=== PATIENT | female | born 1985 | race Caucasian/White ===

== ENCOUNTER → 2018-06-20 17:20 | Outpatient (CLI) | payer OTHER, SELFPAY ==
[2018-06-20 18:56] LABS: HCG Quantitative /Beta subunit 4234.3 mIU/mL
== END ==
PROVIDERS: Visit Provider Obstetrics & Gynecology
DX: O20.9 Hemorrhage in early pregnancy, unspecified (principal)
CPT/HCPCS: 36415; 84702

== ENCOUNTER → 2018-08-01 16:03 | Outpatient (CLI) | payer OTHER, SELFPAY ==
[2018-08-01 17:18] LABS: Add Manual Diff / Slide Review NO; Basophils Percent Auto 0.7 % (0-2); Hematocrit 36.1 % (36-46); Hemoglobin 12.4 g/dL (12.0-16.0); Lymphocytes Percent Auto 25.2 % (25-40); Mean Corpuscular HGB Conc 34.3 % (30-36); Mean Corpuscular Hemoglobin 28.2 PG (26-34); Mean Corpuscular Volume 82.4 fL (80-100); Monocytes Percent Auto 7.8 % (3-14); Neutrophils Absolute Auto 5500 /uL (3000-5900); Neutrophils Percent Auto 66.3 % (50-75); Platelet Count 209 X10^3/uL (150-400); Red Blood Cell Count 4.39 X10^6/uL (4.0-5.2); Red Cell Distribution Width 13.8 % (11.6-14.8); White Blood Cell Count 8.3 X10^3/uL (4.5-11.0)
[2018-08-01 17:42] LABS: Appearance Urine UA CLEAR; Bilirubin Urine UA NEGATIVE (NEGATIVE); Color Urine UA YELLOW; Glucose Urine UA NEGATIVE (Normal); Ketones Urine UA NEGATIVE (NEGATIVE); Leukocyte Esterase Urine UA NEGATIVE (NEGATIVE); Nitrite Urine UA Negative (Negative); Occult Blood Urine UA NEGATIVE (Negative); Protein Urine UA NEGATIVE (Negative); Specific Gravity Urine UA <=1.005 (1.000-1.035); Urobilinogen Urine UA 0.2 E.U./dL (0.2)
[2018-08-01 18:05] LABS: Free T4, Direct Thyroxine 0.61 ng/dL (0.78-2.19)
[2018-08-01 18:18] LABS: Thyroid Stimulating Hormone < 0.02 uIU/mL (0.47-4.68)
[2018-08-01 18:20] LABS: Hepatitis B Surface Antigen NEGATIVE s/c (NEGATIVE)
[2018-08-01 18:40] LABS: HIV 1 and 2 Antibody NEGATIVE (NEGATIVE); Hep C Virus Ab w/Reflex Quant NEGATIVE s/c (NEGATIVE)
[2018-08-03 15:46] LABS: HSV 2 IGG AB < 0.90 index (< 0.90); HSV1IGG < 0.90 index (< 0.90)
[2018-08-08 12:05] LABS: Rapid Plasma Reagin NON-REACTIVE
== END ==
PROVIDERS: PCP Naturopath; Visit Provider Obstetrics & Gynecology
DX: Z3A.01 Less than 8 weeks gestation of pregnancy (principal); Z34.01 Encounter for supervision of normal first pregnancy, first trimester; E06.3 Autoimmune thyroiditis
CPT/HCPCS: 36415; 80055; 81003; 84439; 84443; 86695; 86696; 86703; 86787; 86803; 86850; 86900; 86901; 87086

== ENCOUNTER 2021-03-09 16:49 | Emergency (ER) | payer OTHER, SELFPAY ==
[2021-03-09 17:01] VITALS: BP 142/70; PULSE 112; RESP 14; TEMP 37.9; O2SAT 99
--- NOTE | 2021-03-09 17:08 | DI.RAD.S_ITS ---
PROCEDURE: XR CHEST 2V INDICATIONS: pneumonia not respondint to abx. TECHNIQUE: 2 views of the chest were acquired. COMPARISON: None. FINDINGS: Surgical changes and devices: None. Lungs and pleura: Lungs are abnormal, with dense pneumonia at each lung base, slightly more prominent on the left than the right.. No pleural effusions or pneumothorax. Mediastinum: Mediastinal contours are normal. Heart size is normal. Bones and chest wall: No suspicious bony abnormalities. Soft tissues appear unremarkable. IMPRESSION: Bilateral lower lung pneumonia posteriorly, without definite pleural effusion. The extent of disease is greater on the left than the right. Depending on the clinical status follow-up by contrast-enhanced CT scanning may become necessary. Dictated by: Milton Aden M.D. on 03/09/2021 at 17:36 Approved by: Milton Aden M.D. on 03/09/2021 at 17:37
[2021-03-09 17:54] LABS: COVID19 -Nasal RAPID Negative (Negative)
[2021-03-09 18:29] LABS: Add Manual Diff / Slide Review NO; Basophils Absolute Auto 100 /uL (0-100); Eosinophils Absolute Auto 0 /uL (0-450); Eosinophils Percent Auto 0.1 % (2-4); Hematocrit 34.3 % (36-46); Hemoglobin 11.3 g/dL (12.0-16.0); Lymphocytes Absolute Auto 2700 /uL (1100-4500); Lymphocytes Percent Auto 20.1 % (25-40); Mean Corpuscular HGB Conc 32.8 % (30-36); Mean Corpuscular Hemoglobin 25.7 PG (26-34); Mean Corpuscular Volume 78.4 fL (80-100); Monocytes Absolute Auto 1200 /uL (0-900); Monocytes Percent Auto 9.2 % (3-14); Neutrophils Absolute Auto 9400 /uL (1500-7000); Neutrophils Percent Auto 69.6 % (50-75); Platelet Count 449 X10^3/uL (150-400); Red Blood Cell Count 4.38 X10^6/uL (4.0-5.2); Red Cell Distribution Width 14.2 % (11.6-14.8); White Blood Cell Count 13.5 X10^3/uL (4.5-11.0)
[2021-03-09 18:40] LABS: Alanine Aminotransferase 20 IU/L (<35); Albumin Globulin Ratio 1.1 (1.0-2.8); Alkaline Phosphatase 99 U/L (38-126); Aspartate Aminotransferase 20 IU/L (14-36); BUN Creatinine Ratio 15.9 (6-22); Bilirubin Total 0.2 mg/dL (0.2-1.3); Blood Urea Nitrogen 10 mg/dL (7-17); Calcium 9.8 mg/dL (8.4-10.2); Carbon Dioxide 24 mmol/L (22-32); Chloride 103 mmol/L (98-107); Creatine Kinase 25 U/L (30-135); Estimated Glomerular Filt Rate > 60.0 mL/min (>60); Globulin 3.6 g/dL (1.7-4.1); Glucose 97 mg/dL (70-100); HEMOLYSIS 16 (0-50); Lipase 65 U/L (23-300); Potassium 3.8 mmol/L (3.4-5.1); Sodium 139 mmol/L (137-145); Total Protein 7.6 g/dL (6.3-8.2)
[2021-03-09 18:41] LABS: Lactate (Lactic Acid) 0.9 mmol/L (0.7-2.1)
[2021-03-09] MEDS: SODIUM CHLORIDE 0.9% 2,177.25 ML 725.75 ML IV (18:41)
[2021-03-09 18:43] VITALS: PULSE 109; RESP 28; O2SAT 99
[2021-03-09 18:52] LABS: NT-proBNP (BNP-Adult 18+) 60 pg/mL (<125); Troponin I < 0.012 ng/mL (0.01-0.034)
--- NOTE | 2021-03-09 18:53 | DI.CT.S_ITS ---
PROCEDURE: CT ANGIO CHEST PE PROTOCOL INDICATIONS: SOB, tachycardia, failed pneumonia outpt treatment TECHNIQUE: After the administration of intravenous contrast, 2 mm thick sections acquired from the pulmonary apices to the posterior costophrenic angles. 3-dimensional maximum intensity projection (MIP) coronal and sagittal reformats were then acquired through the thorax. For radiation dose reduction, the following was used: automated exposure control, adjustment of mA and/or kV according to patient size. COMPARISON: None. FINDINGS: Image quality: Excellent. Pulmonary arteries: Pulmonary arteries are normal in size, and demonstrate no intraluminal filling defects to suggest central pulmonary embolism. Lungs and pleura: Dense consolidations are seen in the lower lobes bilaterally as well as the posterior portion of the lingula, most likely representing pneumonia. No pleural effusion or pneumothorax. Mediastinum: Heart size is normal, without pericardial effusion. A few mildly prominent mediastinal lymph nodes are seen that are most likely reactive. No significantly enlarged lymph node is seen by CT size criteria. Thoracic aorta is normal in caliber and enhancement. Esophagus is normal in caliber, without hiatal hernia. Bones and chest wall: No suspicious bony lesions. Ribs and thoracic spine appear intact throughout. Thyroid gland appears normal. No axillary or supraclavicular adenopathy. Abdomen: Visualized upper abdominal solid organs appear normal in the early arterial phase of enhancement. IMPRESSION: 1. No acute pulmonary embolus. 2. Bilateral dense pulmonary consolidations are suspicious for pneumonia. Dictated by: Vipul Machado M.D. on 03/09/2021 at 19:37 Approved by: Vipul Machado M.D. on 03/09/2021 at 19:40
[2021-03-09 18:57] LABS: Procalcitonin 0.05 ng/mL (<0.5)
[2021-03-09 19:00] VITALS: BP 106/64; PULSE 106; RESP 25; O2SAT 99
--- NOTE | 2021-03-09 19:25 | ED.SOB ---
HPI - SOB/Dyspnea <HENOK Vale - Last Filed: 03/09/21 20:32> General Chief Complaint: Fever Stated Complaint: SOB fever,tachycardia, GI Time Seen by Provider: 03/09/21 17:10 Source: patient Mode of arrival: Ambulatory Limitations: no limitations History of Present Illness HPI Narrative: This is a 36-year-old female, nonsmoker, has past medical history with hypothyroidism, Jackie's, autoimmune diseases presents to ED with family with chief complain of short of breath, low-grade of fever, chills and night sweats despite taken 2 types of antibiotic medications for pneumonia. Patient is not on steroids or and a suppressant medications at this time. Patient reports initial symptoms started over a month ago as chest congestion and like bad allergy which continue with coughing. Patient has history of several bronchitis in the past. Patient was evaluated at walk-in clinic primary care and ancillary service in [place] for this ongoing symptoms and was prescribed with Augmentin for 10 day course which she is continuing and albuterol inhaler. Patient felt much improvements and was re-evaluated at the same walk-in clinic and as prescribed Z-Phillip in addition which she completed. Last a few days, and developed night sweats and waking up with soak wet and difficulty sleeping from this and chills. Patient had occasional chest pain 2 weeks ago which she no longer has at this time. Patient feels rattling in left-sided chest. Patient denies known exposure to TB, for COVID illness. Patient had some nausea today diarrhea after she started antibiotic medications but denies abdominal pain. Patient has been socially distancing due to autoimmune disease. Patient was seen today again at walk-in clinic and had lab tests with COVID and flu swabs done and was recommended they evaluation in emergency room at [facility]. O2 saturation was in 95% walk-in clinic. She decided to come to [facility] Emergency room after she waited while at [facility] since she is familiar with [facility]. Patient denies since hospitalization, surgery, leg pain/swelling, history of blood clots. Related Data Home Medications Medication Instructions Recorded Confirmed acetylcysteine 500 mg capsule mg PO cap 08/01/18 08/01/18 cholecalciferol (vitamin D3) 50 2,000 unit PO DAILY 08/01/18 08/01/18 mcg (2,000 unit) capsule liothyronine 25 mcg tablet 25 mcg PO DAILY 08/01/18 08/01/18 liver extract cap PO cap 08/01/18 08/01/18 omega-3 fatty acids 1,000 mg 1,000 mg PO DAILY 08/01/18 08/01/18 capsule prenat.vits,xavier,ahu-ixov-ohtnb 1 tab PO DAILY 08/01/18 08/01/18 thyroid (pork) 90 mg tablet 90 mg PO DAILY 08/01/18 08/01/18 Previous Rx's Medication Instructions Recorded progesterone micronized 200 mg 200 mg PO DAILY #30 cap 07/13/18 capsule levofloxacin 750 mg PO DAILY 10 Days tab 03/10/21 Allergies Allergy/AdvReac Type Severity Reaction Status Date / Time oxycodone AdvReac Vis/Auditory Verified 03/09/21 17:07 Hallucinations Review of Systems <HENOK Vale - Last Filed: 03/09/21 20:32> Review of Systems Narrative: General: See HPI HEENT: Denies sinus pain, ear pain, sore throat, difficulty swallowing, dizziness. Respiratory: See HPI Cardiovascular: See HPI Gastrointestinal: See HPI : Denies dysuria, frequency, incontinence, hematuria, urinary retention. Musculoskeletal: Denies weakness, joint pain or bony pain. Skin: Denies rash, skin lesions, or other. Neurologic: Denies weakness, headache, numbness, change in speech, confusion, seizures, incoordination. Psychiatric: No concerning psychosocial issues. 12-point review of systems is negative except for those stated above. 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 Head: Normal cephalic, atraumatic. No scalp or temporal tenderness, palpable mass or rash. EYES: Pupils are equal, round, and reactive to light and accommodation. Extraocular muscles are intact bilaterally. There is no subconjunctival hemorrhage, exudate and sclera non-icteric. ENT: Hearing grossly intact. Nose without bleeding, purulent discharge or deviation. Facial sinuses nontender to palpate. Mucous membrane moist, no mucosal lesion. Throat without erythema, tonsillar hypertrophy or exudate. Uvula in midline, airway patent. Neck: Trachea in midline. No JVD, non-tender without lymphadenopathy. No masses or thyroid megaly. Supple, non-tender and no meningeal signs. CARDIAC: Normal regular tachy rate and rhythm without murmurs, gallops, or rubs. No chest wall tenderness. No peripheral edema, cyanosis or pallor. Capillary refill is less than 2 seconds. RESPIRATORY: Lungs crackles in mid to upper left lobe. No cough, wheezes or stridor. Tachypnea and difficulty completing a full long sentences. O2 sat from 92-96% in room air. ABD: Abdomen soft, nontender and non-distended. No guarding or rebound tenderness to palpate. Bowel sounds are normal in all 4 quadrants. There is no palpable masses or organomegaly. EXT: Full painless ROM of all extremities with no loss of sensation, strength, effusion or edema. SKIN: Warm, dry, normal color for patient. No erythema, lesions or rash over visible areas. BACK: Nontender without deformity or crepitance. No flank tenderness. NEUROLOGICAL: Alert and oriented to place, time and person. Sensation and motor function intact bilaterally. No facial droops, dysphasia. PSYCHIATRIC: Good judgement and reason, without hallucinations, abnormal affect or abnormal behaviors during the examination. Patient is not suicidal. Initial Vital Signs Initial Vital Signs: Vital Signs Temperature 100.2 F H 03/09/21 17:01 Pulse Rate 112 H 03/09/21 17:01 Respiratory Rate 14 03/09/21 17:01 Blood Pressure 142/70 H 03/09/21 17:01 Pulse Oximetry 99 03/09/21 17:01 <Winnie Bass DO - Last Filed: 03/10/21 04:20> Initial Vital Signs Initial Vital Signs: Vital Signs Temperature 100.2 F H 03/09/21 17:01 Pulse Rate 112 H 03/09/21 17:01 Respiratory Rate 14 03/09/21 17:01 Blood Pressure 142/70 H 03/09/21 17:01 Pulse Oximetry 99 03/09/21 17:01 Scores <HENOK Vale - Last Filed: 03/09/21 20:32> GCS [place] coma scale eye opening: Spontaneous [place] coma scale verbal response: Orientated Rito coma scale motor response: Obey commands [place] coma scale total score: 15 HEART Score Heart Score history: Slightly Suspicious Heart Score EKG: Normal Heart Score Age: < 45 years old Heart Score risk factors: No known risk factors Heart Score troponin: < or = to normal limit Heart Score Total: 0 PERC Score Age greater than or equal to 50 years: No Heart rate greater than or equal to 100 bpm: Yes Room Air O2 Sat less than 95%: Yes Unilateral leg swelling: No Recent trauma or surgery: No Hemoptysis: No Prior PE or DVT: No Hormone Use: No Total PERC Score: 2 qSOFA Altered Mental Status (GCS <15): No Respiratory rate greater than/equal to 22: Yes Systolic blood pressure less than or equal to 100: No qSOFA Total: 1 0-1 Not High Risk 1-3 High risk Wells' Criteria for PE Clinical signs and symptoms of DVT: No PE is #1 Dx or equally likely: Yes Heart rate > 100: Yes Immobilization at least 3 days or surg in previous 4 weeks: No History of PE or DVT: No Hemoptysis: No Malignancy w/Treatment within 6 months or palliative: No Wells' PE Score total: 4.5 Course <HENOK Vale - Last Filed: 03/09/21 20:32> Orders Ordered: ED Orders 03/09/21 19:28 Urinalysis and Microscopic Stat Discontinued Medications Albuterol/Ipratropium (Albuterol/Ipratropium 3 Ml Ampul) 3 ml INH NOW ONE Stop: 03/09/21 19:57 Last Admin: 03/09/21 20:05 Dose: 3 ml Documented by: [email or web address] Dexamethasone (Dexamethasone 10 Mg/Ml Vial) 10 mg IV NOW ONE Stop: 03/09/21 20:29 Last Admin: 03/09/21 20:36 Dose: 10 mg Documented by: AUSTIN Sodium Chloride (Normal Saline 0.9%) 1,000 mls @ 200 mls/hr IV CONT JESUS Last Admin: 03/09/21 18:43 Dose: Not Given Documented by: KESHA Sodium Chloride (Normal Saline 0.9%) 2,177.25 mls @ 725.75 mls/hr 30 ml/kg infuse over 3 hr (2177.25 ml) IV NOW ONE Stop: 03/09/21 20:45 Last Infusion: 03/09/21 21:01 Dose: 0 mls/hr Documented by: Infusion: 03/09/21 18:41 Dose: 999 mls/hr Documented by: Admin: 03/09/21 18:41 Dose: 725.75 mls/hr Documented by: KESHA Levofloxacin (Levaquin) 750 mg in 150 mls @ 100 mls/hr IV NOW ONE Stop: 03/09/21 21:33 Last Infusion: 03/09/21 21:32 Dose: 0 mls/hr Documented by: Admin: 03/09/21 20:16 Dose: 100 mls/hr Documented by: AUSTIN Vancomycin HCl/Dextrose (Vancomycin) 2,000 mg in 400 mls @ 200 mls/hr IV NOW ONE Stop: 03/09/21 22:04 Last Infusion: 03/10/21 00:35 Dose: 0 mls/hr Documented by: Infusion: 03/10/21 00:20 Dose: 150 mls/hr Documented by: Infusion: 03/09/21 22:25 Dose: 100 mls/hr Documented by: Admin: 03/09/21 21:33 Dose: 200 mls/hr Documented by: AUSTIN Reevaluation(s) Reevaluation #1: HR in 110-120's after the 1 Liter NS infusion. O2 sat 99% in RA with tachypnea at 24 and SOB. Normal tensive. Discussed findings of negative PE and bilateral dense pneumonia per CT test and labs reflecting this with elevated WBC with negative lactate and procalcitonin. Negative troponin. Patient would like to go home after receiving IV antibiotic medications with strict precautions. Patient's case just with Dr. Bass who will be following up on the patient's care. No beds are available house, nearby hospitals in [facility]. Time: 20:18 Vital Signs Vital signs: Vital Signs - 8 hr 03/09/21 20:42 03/10/21 00:49 03/10/21 00:57 Temperature 98.2 F Pulse Rate 103 H Respiratory Rate 16 18 Blood Pressure 107/60 Pulse Oximetry 97 98 03/10/21 01:12 Temperature 97.6 F Pulse Rate 68 Respiratory Rate 20 Blood Pressure 107/66 Pulse Oximetry 96 <Winnie Bass DO - Last Filed: 03/10/21 04:20> Orders Ordered: ED Orders 03/09/21 19:28 Urinalysis and Microscopic Stat Discontinued Medications Albuterol/Ipratropium (Albuterol/Ipratropium 3 Ml Ampul) 3 ml INH NOW ONE Stop: 03/09/21 19:57 Last Admin: 03/09/21 20:05 Dose: 3 ml Documented by: ABEAMA Dexamethasone (Dexamethasone 10 Mg/Ml Vial) 10 mg IV NOW ONE Stop: 03/09/21 20:29 Last Admin: 03/09/21 20:36 Dose: 10 mg Documented by: ABEAMA Sodium Chloride (Normal Saline 0.9%) 1,000 mls @ 200 mls/hr IV CONT JESUS Last Admin: 03/09/21 18:43 Dose: Not Given Documented by: KESHA Sodium Chloride (Normal Saline 0.9%) 2,177.25 mls @ 725.75 mls/hr 30 ml/kg infuse over 3 hr (2177.25 ml) IV NOW ONE Stop: 03/09/21 20:45 Last Infusion: 03/09/21 21:01 Dose: 0 mls/hr Documented by: Infusion: 03/09/21 18:41 Dose: 999 mls/hr Documented by: Admin: 03/09/21 18:41 Dose: 725.75 mls/hr Documented by: KESHA Levofloxacin (Levaquin) 750 mg in 150 mls @ 100 mls/hr IV NOW ONE Stop: 03/09/21 21:33 Last Infusion: 03/09/21 21:32 Dose: 0 mls/hr Documented by: [email or web address] Admin: 03/09/21 20:16 Dose: 100 mls/hr Documented by: [email or web address] Vancomycin HCl/Dextrose (Vancomycin) 2,000 mg in 400 mls @ 200 mls/hr IV NOW ONE Stop: 03/09/21 22:04 Last Infusion: 03/10/21 00:35 Dose: 0 mls/hr Documented by: [email or web address] Infusion: 03/10/21 00:20 Dose: 150 mls/hr Documented by: CTR.[email or web address] Infusion: 03/09/21 22:25 Dose: 100 mls/hr Documented by: CTR.[email or web address] Admin: 03/09/21 21:33 Dose: 200 mls/hr Documented by: [email or web address] Reevaluation(s) Reevaluation #1: Patient is feeling much better and evaluated by myself in the room. She has been ambulating back and forth to the bathroom without issue . She does not wish to be admitted. We discussed we are changing her antibiotics but this is her 3rd round of antibiotics (initial were augmentin and azithromycin) which patient states she completed and if it is ineffective she does likely need hospitalization or further evaluation. She has also been using albuterol without a spacer so was provided one here in the department with teaching. She does not live locally but is staying with family currently so she has courage to return if any worsening and we also discussed getting a pulse oximeter to monitor herself at home. Time: 01:00 Vital Signs Vital signs: Vital Signs - 8 hr 03/09/21 20:42 03/10/21 00:49 03/10/21 00:57 Temperature 98.2 F Pulse Rate 103 H Respiratory Rate 16 18 Blood Pressure 107/60 Pulse Oximetry 97 98 03/10/21 01:12 Temperature 97.6 F Pulse Rate 68 Respiratory Rate 20 Blood Pressure 107/66 Pulse Oximetry 96 MDM - SOB/Dyspnea <Butch HENOK Rachel - Last Filed: 03/09/21 20:32> Differential Diagnosis Differential diagnosis: Likely community acquired pneumonia, pulmonary embolism and other (sepsis, pleural effusion, ACS) Medical Records Attestation: I reviewed the patient's medical records. Lab Data Attestation: I reviewed the patient's lab results. Result diagrams: 03/09/21 18:06 03/09/21 18:06 Labs: Lab Results 03/09/21 03/09/21 03/09/21 Range/Units 16:00 17:10 18:06 WBC 13.5 H (4.5-11.0) X10^3/uL RBC 4.38 (4.0-5.2) X10^6/uL Hgb 11.3 L (12.0-16.0) g/dL Hct 34.3 L (36-46) % MCV 78.4 L (80-100) fL MCH 25.7 L (26-34) PG MCHC 32.8 (30-36) % RDW 14.2 (11.6-14.8) % Plt Count 449 H (150-400) X10^3/uL Neut % (Auto) 69.6 (50-75) % Lymph % (Auto) 20.1 L (25-40) % [place] % (Auto) 9.2 (3-14) % Eos % (Auto) 0.1 L (2-4) % Baso % (Auto) 1.0 (0-2) % Neut # (Auto) 9400 H (4575-7139) /uL Lymph # (Auto) 2700 (2843-3670) /uL [place] # (Auto) 1200 H (0-900) /uL Eos # (Auto) 0 (0-450) /uL Baso # (Auto) 100 (0-100) /uL Sodium (137-145) mmol/L Potassium (3.4-5.1) mmol/L Chloride (98-107) mmol/L Carbon Dioxide (22-32) mmol/L BUN (7-17) mg/dL Creatinine (0.52-1.04) mg/dL Estimated GFR (>60) mL/min BUN/Creatinine Ratio (6-22) Glucose (70-100) mg/dL Lactate (0.7-2.1) mmol/L Calcium (8.4-10.2) mg/dL Total Bilirubin (0.2-1.3) mg/dL AST (14-36) IU/L ALT (<35) IU/L Alkaline Phosphatase (38-126) U/L Total Creatine Kinase (30-135) U/L CK-MB (CK-2) CK-MB (CK-2) Rel Index Troponin I (0.01-0.034) ng/mL NT-Pro-B Natriuret Pep (<125) pg/mL Total Protein (6.3-8.2) g/dL Albumin (3.5-5.0) g/dL Globulin (1.7-4.1) g/dL Albumin/Globulin Ratio (1.0-2.8) Lipase (23-300) U/L Procalcitonin (<0.5) ng/mL TSH < 0.015 L (0.47-4.68) uIU/mL Free T4 0.90 (0.78-2.19) ng/dL Free T3 4.55 (2.77-5.27) pg/mL SARS-CoV-2 (PCR) Negative (Negative) 03/09/21 03/09/21 Range/Units 18:06 18:06 WBC (4.5-11.0) X10^3/uL RBC (4.0-5.2) X10^6/uL Hgb (12.0-16.0) g/dL Hct (36-46) % MCV (80-100) fL MCH (26-34) PG MCHC (30-36) % RDW (11.6-14.8) % Plt Count (150-400) X10^3/uL Neut % (Auto) (50-75) % Lymph % (Auto) (25-40) % [place] % (Auto) (3-14) % Eos % (Auto) (2-4) % Baso % (Auto) (0-2) % Neut # (Auto) (9287-7417) /uL Lymph # (Auto) (1722-5263) /uL [place] # (Auto) (0-900) /uL Eos # (Auto) (0-450) /uL Baso # (Auto) (0-100) /uL Sodium 139 (137-145) mmol/L Potassium 3.8 (3.4-5.1) mmol/L Chloride 103 (98-107) mmol/L Carbon Dioxide 24 (22-32) mmol/L BUN 10 (7-17) mg/dL Creatinine 0.63 (0.52-1.04) mg/dL Estimated GFR > 60.0 (>60) mL/min BUN/Creatinine Ratio 15.9 (6-22) Glucose 97 (70-100) mg/dL Lactate 0.9 (0.7-2.1) mmol/L Calcium 9.8 (8.4-10.2) mg/dL Total Bilirubin 0.2 (0.2-1.3) mg/dL AST 20 (14-36) IU/L ALT 20 (<35) IU/L Alkaline Phosphatase 99 (38-126) U/L Total Creatine Kinase 25 L (30-135) U/L CK-MB (CK-2) TNP CK-MB (CK-2) Rel Index TNP Troponin I < 0.012 (0.01-0.034) ng/mL NT-Pro-B Natriuret Pep 60 (<125) pg/mL Total Protein 7.6 (6.3-8.2) g/dL Albumin 4.0 (3.5-5.0) g/dL Globulin 3.6 (1.7-4.1) g/dL Albumin/Globulin Ratio 1.1 (1.0-2.8) Lipase 65 (23-300) U/L Procalcitonin 0.05 (<0.5) ng/mL TSH (0.47-4.68) uIU/mL Free T4 (0.78-2.19) ng/dL Free T3 (2.77-5.27) pg/mL SARS-CoV-2 (PCR) (Negative) Point of Care Testing Test Results Negative Urine Dip Bedside Urine Glucose Negative Bedside Urine Bilirubin - Negative Bedside Urine Ketone - Negative Urine Specific Lynn 1.010 Bedside Urine Occult Blood +/- Bedside Urine Protein - Negative Bedside Urine Urobilinogen - Negative Bedside Urine Nitrite - Negative Bedside Urine Leukocytes - Negative Esterase Imaging Data Chest x-ray: Radiologist's Impression: [address] [id number] ReportSigned Patient: Monalisa Blanco#: [id number]: 1985Acct:[id number]/Sex: 36 / FDate of Service: 03/09/21Loc: EDAccession Number: [id number] Procedure: XR chest 2V Ordering Provider: Frederick Morrow D.O. PROCEDURE: XR CHEST 2V INDICATIONS: pneumonia not respondint to abx. TECHNIQUE: 2 views of the chest were acquired. COMPARISON: None. FINDINGS: Surgical changes and devices: None. Lungs and pleura: Lungs are abnormal, with dense pneumonia at each lung base, slightly more prominent on the left than the right.. No pleural effusions or pneumothorax. Mediastinum: Mediastinal contours are normal. Heart size is normal. Bones and chest wall: No suspicious bony abnormalities. Soft tissues appear unremarkable. IMPRESSION: Bilateral lower lung pneumonia posteriorly, without definite pleural effusion. The extent of disease is greater on the left than the right. Depending on the clinical status follow-up by contrast-enhanced CT scanning may become necessary. Dictated by: Milton Aden M.D. on 03/09/2021 at 17:36 Approved by: Milton Aden M.D. on 03/09/2021 at 17:37 CT scan - chest: Radiologist's Impression: [address] [id number] Scan ReportSigned Patient: Monalisa Blanco#: [id number]: 1985Acct:[id number]/Sex: 36 / FDate of Service: 03/09/21Loc: EDAccession Number: [id number] Procedure: CT angio chest PE protocol Ordering Provider: Butch Rachel PROCEDURE: CT ANGIO CHEST PE PROTOCOL INDICATIONS: SOB, tachycardia, failed pneumonia outpt treatment TECHNIQUE: After the administration of intravenous contrast, 2 mm thick sections acquired from the pulmonary apices to the posterior costophrenic angles. 3-dimensional maximum intensity projection (MIP) coronal and sagittal reformats were then acquired through the thorax. For radiation dose reduction, the following was used: automated exposure control, adjustment of mA and/or kV according to patient size. COMPARISON: None. FINDINGS: Image quality: Excellent. Pulmonary arteries: Pulmonary arteries are normal in size, and demonstrate no intraluminal filling defects to suggest central pulmonary embolism. Lungs and pleura: Dense consolidations are seen in the lower lobes bilaterally as well as the posterior portion of the lingula, most likely representing pneumonia. No pleural effusion or pneumothorax. Mediastinum: Heart size is normal, without pericardial effusion. A few mildly prominent mediastinal lymph nodes are seen that are most likely reactive. No significantly enlarged lymph node is seen by CT size criteria. Thoracic aorta is normal in caliber and enhancement. Esophagus is normal in caliber, without hiatal hernia. Bones and chest wall: No suspicious bony lesions. Ribs and thoracic spine appear intact throughout. Thyroid gland appears normal. No axillary or supraclavicular adenopathy. Abdomen: Visualized upper abdominal solid organs appear normal in the early arterial phase of enhancement. IMPRESSION: 1. No acute pulmonary embolus. 2. Bilateral dense pulmonary consolidations are suspicious for pneumonia. Dictated by: Vipul Machado M.D. on 03/09/2021 at 19:37 Approved by: Vipul Machado M.D. on 03/09/2021 at 19:40 ECG Data Attestation: I personally reviewed and interpreted this ECG as follows: Prior ECG tracings: not available for review Interpretation: Sinus tachycardia rate at 1:16 a.m.. Normal axis. FL interval 162, QRS duration 72, QT/QTC 322/447. No ST elevations or depressions MDM Narrative Medical decision making narrative: This is a 36-year-old female presents to ED after she was evaluated in walk-in clinic at [place] several times with ongoing breath, productive cough, mild grade of fever, and short of breath. Patient completed Z-Phillip and she is on 10 day course of Augmentin without improving symptoms. Last few days patient developed night sweats and chills at night. Patient's room air O2 said on arrival range from 92-96% with tachypnea of 26 per minutes with heart rate in 110s to 120s with normotensive. Patient appears to be short of breath and difficulty completing a long sentences. Lung sounds some crackles in mid to upper left lobes. Patient is nontoxic appearing. Concerned for sepsis from pneumonia, PE, and large pleural effusion, chest CT ordered with septic workup. Count elevated to 13.5 with elevated neutrophil count of 9400 with normal lactate and procalcitonin. Mildly decreased H&H of 11.3/34.3 with slightly decreased MCV, MCH. Platelets slightly elevated to 449. Chemistry test was unremarkable. Cardiac enzymes were negative along proBNP. EKG sinus tachycardia rate at 1:16 a.m.. COVID test was negative. Given patient has long history of hypothyroidism, Jackie's, add a TSH and free T3 and T4. Patient reports she runs chronically low in TSH. Urine test was negative for infection and urine test was negative. Chest x-ray with bilateral lower lung pneumonia posteriorly without definite pleural effusion. Chest CT shows lateral dense pulmonary consolidations suspicious for pneumonia without pulmonary embolism. It is usual for patient's age who failed two antibiotic medication treatments for pneumonia who is not on immunosuppressant medications. We discussed for possible transfer to other hospitals if beds are available (as of early today, no beds are available near [facility] or in [facility]) and patient would like to be discharged to home as much as possible. Findings discussed with Dr. Bass and IV antibiotic medication Vanco and Levaquin added. Will do trial one dose of dexamethasone 10 mg if this is immune component. Patient is signed out to Dr. Bass. <Winnie Bass, DO - Last Filed: 03/10/21 04:20> Lab Data Labs: Lab Results 03/09/21 03/09/21 03/09/21 Range/Units 16:00 17:10 18:06 WBC 13.5 H (4.5-11.0) X10^3/uL RBC 4.38 (4.0-5.2) X10^6/uL Hgb 11.3 L (12.0-16.0) g/dL Hct 34.3 L (36-46) % MCV 78.4 L (80-100) fL MCH 25.7 L (26-34) PG MCHC 32.8 (30-36) % RDW 14.2 (11.6-14.8) % Plt Count 449 H (150-400) X10^3/uL Neut % (Auto) 69.6 (50-75) % Lymph % (Auto) 20.1 L (25-40) % [place] % (Auto) 9.2 (3-14) % Eos % (Auto) 0.1 L (2-4) % Baso % (Auto) 1.0 (0-2) % Neut # (Auto) 9400 H (5502-7727) /uL Lymph # (Auto) 2700 (6634-8765) /uL [place] # (Auto) 1200 H (0-900) /uL Eos # (Auto) 0 (0-450) /uL Baso # (Auto) 100 (0-100) /uL Sodium (137-145) mmol/L Potassium (3.4-5.1) mmol/L Chloride (98-107) mmol/L Carbon Dioxide (22-32) mmol/L BUN (7-17) mg/dL Creatinine (0.52-1.04) mg/dL Estimated GFR (>60) mL/min BUN/Creatinine Ratio (6-22) Glucose (70-100) mg/dL Lactate (0.7-2.1) mmol/L Calcium (8.4-10.2) mg/dL Total Bilirubin (0.2-1.3) mg/dL AST (14-36) IU/L ALT (<35) IU/L Alkaline Phosphatase (38-126) U/L Total Creatine Kinase (30-135) U/L CK-MB (CK-2) CK-MB (CK-2) Rel Index Troponin I (0.01-0.034) ng/mL NT-Pro-B Natriuret Pep (<125) pg/mL Total Protein (6.3-8.2) g/dL Albumin (3.5-5.0) g/dL Globulin (1.7-4.1) g/dL Albumin/Globulin Ratio (1.0-2.8) Lipase (23-300) U/L Procalcitonin (<0.5) ng/mL TSH < 0.015 L (0.47-4.68) uIU/mL Free T4 0.90 (0.78-2.19) ng/dL Free T3 4.55 (2.77-5.27) pg/mL SARS-CoV-2 (PCR) Negative (Negative) 03/09/21 03/09/21 Range/Units 18:06 18:06 WBC (4.5-11.0) X10^3/uL RBC (4.0-5.2) X10^6/uL Hgb (12.0-16.0) g/dL Hct (36-46) % MCV (80-100) fL MCH (26-34) PG MCHC (30-36) % RDW (11.6-14.8) % Plt Count (150-400) X10^3/uL Neut % (Auto) (50-75) % Lymph % (Auto) (25-40) % [place] % (Auto) (3-14) % Eos % (Auto) (2-4) % Baso % (Auto) (0-2) % Neut # (Auto) (3343-0188) /uL Lymph # (Auto) (0976-8991) /uL [place] # (Auto) (0-900) /uL Eos # (Auto) (0-450) /uL Baso # (Auto) (0-100) /uL Sodium 139 (137-145) mmol/L Potassium 3.8 (3.4-5.1) mmol/L Chloride 103 (98-107) mmol/L Carbon Dioxide 24 (22-32) mmol/L BUN 10 (7-17) mg/dL Creatinine 0.63 (0.52-1.04) mg/dL Estimated GFR > 60.0 (>60) mL/min BUN/Creatinine Ratio 15.9 (6-22) Glucose 97 (70-100) mg/dL Lactate 0.9 (0.7-2.1) mmol/L Calcium 9.8 (8.4-10.2) mg/dL Total Bilirubin 0.2 (0.2-1.3) mg/dL AST 20 (14-36) IU/L ALT 20 (<35) IU/L Alkaline Phosphatase 99 (38-126) U/L Total Creatine Kinase 25 L (30-135) U/L CK-MB (CK-2) TNP CK-MB (CK-2) Rel Index TNP Troponin I < 0.012 (0.01-0.034) ng/mL NT-Pro-B Natriuret Pep 60 (<125) pg/mL Total Protein 7.6 (6.3-8.2) g/dL Albumin 4.0 (3.5-5.0) g/dL Globulin 3.6 (1.7-4.1) g/dL Albumin/Globulin Ratio 1.1 (1.0-2.8) Lipase 65 (23-300) U/L Procalcitonin 0.05 (<0.5) ng/mL TSH (0.47-4.68) uIU/mL Free T4 (0.78-2.19) ng/dL Free T3 (2.77-5.27) pg/mL SARS-CoV-2 (PCR) (Negative) Point of Care Testing Test Results Negative Urine Dip Bedside Urine Glucose Negative Bedside Urine Bilirubin - Negative Bedside Urine Ketone - Negative Urine Specific Lynn 1.010 Bedside Urine Occult Blood +/- Bedside Urine Protein - Negative Bedside Urine Urobilinogen - Negative Bedside Urine Nitrite - Negative Bedside Urine Leukocytes - Negative Esterase Discharge Plan Departure Patient Disposition: Home Clinical Impression: Pneumonia Qualifiers: Pneumonia type: due to unspecified organism Laterality: bilateral Lung location: lower lobe of lung Qualified Code(s): J18.9 - Pneumonia, unspecified organism Instructions: DI for Pneumonia -- Adult Activity Restrictions/Additional Instructions: Your CT and labs support pneumonia but you should have close follow up as you have failed treatment with two oral antibiotics. I would recommend observation in the hospital for IV antibiotics and if you do not improve with the third antibiotic you do not need further workup and evaluation. You are welcome to return at any time for repeat evaluation. It may be beneficial to use a pulse oximeter at home. Normal oxygen levels are above 94%. Take oral antibiotic until gone. Start the oral antibiotic tomorrow. You may take Tylenol and/or ibuprofen for any fevers greater 100.4 F Please return for persistent fevers, new or worsening shortness of breath, lightheadedness or passing out, chest pain or pressure, persistent vomiting, new swelling in her extremities or other new or concerning symptoms. Prescriptions: New levofloxacin 750 mg tablet 750 mg PO DAILY 10 Days RF: 0 No Action progesterone micronized 200 mg capsule 200 mg PO DAILY Qty: 30 RF: 3 omega-3 fatty acids [Fish Oil Concentrate] 1,000 mg capsule 1,000 mg PO DAILY RF: 0 liothyronine 25 mcg tablet 25 mcg PO DAILY RF: 0 liver extract capsule PO RF: 0 prenat.vits,xavier,kbz-omnb-ravup [ Vitamin] tablet 1 tab PO DAILY RF: 0 cholecalciferol (vitamin D3) 2,000 unit capsule 2,000 unit PO DAILY RF: 0 thyroid (pork) [[place] Thyroid] 90 mg tablet 90 mg PO DAILY RF: 0 acetylcysteine 500 mg capsule PO RF: 0 Referrals: Renetta Vasquez ND [Primary Care Provider] -
[2021-03-09 19:30] VITALS: PULSE 109; RESP 25; O2SAT 97
[2021-03-09] MEDS: ALBUTEROL/IPRATROPIUM 3 ML AMPUL INH (20:05)
[2021-03-09] MEDS: levoFLOXacin 750 MG/150 ML PIGGYBACK 100 MG IV (20:16)
[2021-03-09 20:35] LABS: Free T3, Triiodothyronine Free 4.55 pg/mL (2.77-5.27)
[2021-03-09] MEDS: DEXAMETHASONE 10 MG/ML VIAL IV (20:36)
[2021-03-09 20:42] VITALS: RESP 16; O2SAT 97
[2021-03-09 21:27] LABS: Thyroid Stimulating Hormone < 0.015 uIU/mL (0.47-4.68)
[2021-03-09] MEDS: VANCOMYCIN 2,000 MG/400 ML PIGGYBACK 200 MG IV (21:33)
--- NOTE | 2021-03-09 22:53 | PC.NURSE ---
Pt c/o itching all over at 2225, some redness to forehead observed. Vanco stopped while pt went to restroom, restarted at slower rate of 100mL/hr. aware, no new order at this time.
[2021-03-10 00:49] VITALS: BP 107/60; PULSE 103; RESP 18; O2SAT 98
[2021-03-10 00:57] VITALS: TEMP 36.8
[2021-03-10 01:12] VITALS: BP 107/66; PULSE 68; RESP 20; TEMP 36.4; O2SAT 96
== END 2021-03-10 01:13 | disposition home or self-care (01) ==
PROVIDERS: Emergency Medicine; Nurse Practitioner Family; Emergency Provider Emergency Medicine; PCP Naturopath
DX: J18.9 Pneumonia, unspecified organism (principal); R50.9 Fever, unspecified; Z20.822 Contact with and (suspected) exposure to COVID-19
CPT/HCPCS: 36415; 71046; 71275; 80053; 81003; 81025; 82550; 83605; 83690; 83880; 84145; 84439; 84443; 84481; 84484; 85025; 87040; 87635; 93005; 93010; 94640; 96361; 96365; 96366; 96367; 96375; 99284; C9803; J1100; J1956; Q9967

== ENCOUNTER 2021-03-16 15:09 | Emergency (ER) | payer OTHER, SELFPAY ==
[2021-03-16] VITALS (22 sets, daily range): BP systolic 104–127; BP diastolic 54–74; PULSE 108–128; RESP 23–33; TEMP 36.8–37.7; O2SAT 92–100
--- NOTE | 2021-03-16 15:16 | ED_ITS ---
HPI - SOB/Dyspnea General Chief Complaint: Shortness of Breath/Dyspnea Stated Complaint: Bilateral Pneumonia, Not Getting Better Time Seen by Provider: 03/16/21 15:11 Source: patient and family Mode of arrival: Ambulatory Limitations: no limitations History of Present Illness HPI Narrative: 36-year-old female nonsmoker with extensive medical history including multiple immune deficiency syndromes, potential Lyme disease and related given her admitted prolonged recent pneumonia presents with ongoing symptoms including significant difficulty breathing subjective fevers and chills, fatigue and low back pain. A few weeks ago she was seen and evaluated as an outpatient and treated for outpatient pneumonia with a Z-Phillip and also Augmentin. On March 09 she was seen and evaluated here and had a very thorough evaluation including extensive lab work including a chest x-ray and also a CT angiogram to rule out PE. She was found to have bilateral pneumonia and was resistant for admission, she was discharged on a course of Levaquin and thinks maybe she started getting a bit better but then started getting sick again a few days ago. She denies any recent travel, history of blood clot or cancer. MD Complaint: shortness of breath and cough Onset (ago): hour(s) Context: recent illness Severity: moderate Consistency/Duration: constant Relieving factors: rest Exacerbating factors: exertion Known history of: recurrent pneumonia Associated symptoms: denies other symptoms Treatment prior to arrival: none Related Data Home oxygen amount: none Home Medications Medication Instructions Recorded Confirmed liothyronine 25 mcg tablet 25 mcg PO DAILY 08/01/18 03/16/21 thyroid (pork) 90 mg tablet 90 mg PO DAILY 08/01/18 03/16/21 Lacto 51-Bifid 3-L.lact-S.ther 3 cap PO DAILY 03/16/21 03/16/21 [Daily Probiotic (10 Strains)] levothyroxine 20 mcg PO QAM 03/16/21 03/16/21 c-yjxkwe-fphkv-d-glucosamine See Rx Instructions .ROUTE .COMPLEX 03/16/21 03/16/21 naltrexone 1.5 mg PO DAILY 03/16/21 03/16/21 turmeric (bulk) [Curcumin] 1 ea MISCELLANEOUS BID 03/16/21 03/16/21 Previous Rx's Medication Instructions Recorded levofloxacin 750 mg PO DAILY 10 Days tab 03/10/21 Allergies Allergy/AdvReac Type Severity Reaction Status Date / Time oxycodone AdvReac Vis/Auditory Verified 03/16/21 18:06 Hallucinations Review of Systems Constitutional Constitutional: Reports body ache(s), Reports chills, Reports fatigue, Denies f ever(s), Denies frequent falls, Denies lethargy and Denies weakness Eyes Eyes: Denies change in vision, Denies eye discharge, Denies irritation and Denies loss of vision ENT Ears, Nose, Mouth, and Throat: Denies change in voice, Denies dizziness, Denies neck pain, Denies sore throat and Denies throat swelling Cardiovascular Cardiovascular: Denies chest pain, Denies irregular heart rhythm, Denies lightheadedness, Denies palpitations, Reports dyspnea, Reports dyspnea on exertion and Denies orthopnea Respiratory Respiratory: Reports cough, Reports dyspnea, Reports dyspnea on exertion and Denies wheezing Gastrointestinal Gastrointestinal: Denies abdominal pain, Denies change in bowel habits, Denies diarrhea, Denies nausea and Denies vomiting Musculoskeletal Musculoskeletal: Denies neck pain and Denies numbness Integumentary/Breasts Skin/Breast: Denies pruritus, Denies erythema, Denies rash and Denies wounds Neurologic Neurologic: Denies behavioral changes, Denies confusion, Denies dizziness, Denie s frequent falls, Denies loss of vision, Denies numbness and Denies weakness Psychiatric Psychiatric: Denies anxiety, Denies behavioral changes, Denies confusion, Denies depression, Denies homicidal ideation and Denies suicidal ideation Endocrine Endocrine: Reports fatigue, Denies flushing and Denies palpitations Hematologic/Lymphatic Hematologic/Lymphatic: Denies easy bruising Allergic/Immunologic Allergic/Immunologic: Denies urticaria, Denies throat swelling and Denies wheezing Patient History Medical History 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 Well- nourished, well-developed patient, in mild distress. Minimal exertion results in obvious visible increased work of breathing and inability to complete sentences. HEAD: Atraumatic. Normocephalic. EYES: Pupils equal round and reactive. Extraocular motions intact. No scleral icterus. No injection or drainage. ENT: Nose without bleeding, purulent drainage. Throat without erythema, tonsillar hypertrophy or exudate. Airway patent. NECK: Trachea midline. Non tender CARDIOVASCULAR: Regular rate and rhythm without murmurs, gallops, or rubs. RESPIRATORY: Tachypnea, crackles in bilateral bases GASTROINTESTINAL: Abdomen soft, non-tender, nondistended. EXTREMITIES: No edema or joint tenderness. BACK: Nontender without deformity or crepitance. No flank tenderness. NEURO: AOx3. SKIN: No rash or erythema of visible areas Initial Vital Signs Initial Vital Signs: Vital Signs Temperature 98.2 F 03/16/21 15:23 Pulse Rate 112 H 03/16/21 15:23 Respiratory Rate 24 03/16/21 15:23 Blood Pressure 114/74 03/16/21 15:23 Pulse Oximetry 95 03/16/21 15:23 Course Orders Ordered: Discontinued Medications Sodium Chloride (Normal Saline 0.9%) 1,632.93 mls @ 544.31 mls/hr 30 ml/kg infuse over 3 hr (1632.93 ml) IV NOW ONE Stop: 03/16/21 20:02 Last Infusion: 03/16/21 22:47 Dose: 0 mls/hr Documented by: Infusion: 03/16/21 19:28 Dose: 400 mls/hr Documented by: Infusion: 03/16/21 18:37 Dose: 475 mls/hr Documented by: Admin: 03/16/21 18:23 Dose: 544.31 mls/hr Documented by: DEANN Piperacillin Sod/Tazobactam (Sod 4.5 gm/ Sodium Chloride) 100 mls @ 25 mls/hr IV NOW ONE Stop: 03/16/21 17:06 Last Infusion: 03/16/21 20:36 Dose: 0 mls/hr Documented by: Infusion: 03/16/21 19:27 Dose: 100 mls/hr Documented by: Admin: 03/16/21 18:22 Dose: 25 mls/hr Documented by: DEANN Azithromycin 500 mg/ Dextrose 250 mls @ 250 mls/hr IV NOW ONE Stop: 03/16/21 19:21 Last Admin: 03/16/21 20:29 Dose: Not Given Documented by: KESHA Azithromycin 500 mg/ Dextrose 250 mls @ 250 mls/hr IV NOW ONE Stop: 03/16/21 20:30 Last Infusion: 03/16/21 22:43 Dose: 0 mls/hr Documented by: Admin: 03/16/21 21:13 Dose: 250 mls/hr Documented by: DEANN Ondansetron HCl (Ondansetron 4 Mg/2 Ml Inj) 4 mg IV NOW ONE Stop: 03/16/21 22:18 Last Admin: 03/16/21 22:23 Dose: 4 mg Documented by: MYAH Reevaluation(s) Reevaluation #1: hospitalist contacted given need for hospitalization. Given failed outpatient, immune compromise he cannot accept here and requests transfer Reevaluation #2: calls to [facility], [facility], [facility] and no beds available [facility] does have beds, hospitalist has been contacted we have spoken and she is happy to accept patient in transfer, will work on getting patient set up for bronch Vital Signs Vital signs: Vital Signs - 8 hr 03/16/21 15:23 03/16/21 16:35 03/16/21 16:36 Temperature 98.2 F Pulse Rate 112 H 112 H 111 H Respiratory Rate 24 Blood Pressure 114/74 107/60 Pulse Oximetry 95 100 100 03/16/21 16:39 03/16/21 17:00 03/16/21 17:09 Temperature 98.5 F Pulse Rate 116 H 110 H Respiratory Rate 24 23 Blood Pressure 112/62 Pulse Oximetry 99 98 03/16/21 17:30 03/16/21 18:00 03/16/21 18:31 Temperature Pulse Rate 108 H 117 H 114 H Respiratory Rate 24 26 H Blood Pressure Pulse Oximetry 98 98 100 03/16/21 18:32 03/16/21 19:00 03/16/21 19:30 Temperature Pulse Rate 113 H 110 H 125 H Respiratory Rate 29 H 25 H 33 H Blood Pressure 113/62 106/61 127/64 Pulse Oximetry 99 98 100 MDM - SOB/Dyspnea Lab Data Result diagrams: 03/16/21 11:15 03/16/21 11:15 Labs: Lab Results 03/16/21 03/16/21 03/16/21 Range/Units 11:15 11:15 11:15 WBC 14.1 H (4.5-11.0) X10^3/uL RBC 4.17 (4.0-5.2) X10^6/uL Hgb 10.5 L (12.0-16.0) g/dL Hct 32.8 L (36-46) % MCV 78.5 L (80-100) fL MCH 25.3 L (26-34) PG MCHC 32.2 (30-36) % RDW 14.5 (11.6-14.8) % Plt Count 381 (150-400) X10^3/uL Neut % (Auto) 69.9 (50-75) % Lymph % (Auto) 19.1 L (25-40) % [place] % (Auto) 10.7 (3-14) % Eos % (Auto) 0.1 L (2-4) % Baso % (Auto) 0.2 (0-2) % Neut # (Auto) 9800 H (8869-0257) /uL Lymph # (Auto) 2700 (2351-0150) /uL [place] # (Auto) 1500 H (0-900) /uL Eos # (Auto) 0 (0-450) /uL Baso # (Auto) 0 (0-100) /uL D-Dimer (<230) ng/mL ABG pH (7.35-7.45) ABG pCO2 (35-45) mmHg ABG pO2 (80-100) mmHg ABG HCO3 (22-26) mmol/L ABG Total CO2 (21-31) mmol/L ABG O2 Saturation (95-100) % ABG Base Excess (-2-2) mmol/L FiO2 Sodium 136 L (137-145) mmol/L Potassium 3.7 (3.4-5.1) mmol/L Chloride 103 (98-107) mmol/L Carbon Dioxide 27 (22-32) mmol/L BUN 7 (7-17) mg/dL Creatinine 0.77 (0.52-1.04) mg/dL Estimated GFR > 60.0 (>60) mL/min BUN/Creatinine Ratio 9.1 (6-22) Glucose 96 (70-100) mg/dL Lactate 1.0 (0.7-2.1) mmol/L Calcium 9.5 (8.4-10.2) mg/dL Total Bilirubin 0.2 (0.2-1.3) mg/dL AST 16 (14-36) IU/L ALT 13 (<35) IU/L Alkaline Phosphatase 82 (38-126) U/L Total Protein 6.8 (6.3-8.2) g/dL Albumin 3.6 (3.5-5.0) g/dL Globulin 3.2 (1.7-4.1) g/dL Albumin/Globulin Ratio 1.1 (1.0-2.8) Chlamy pneumoniae PCR (Not Detect) Adenovirus (PCR) (Not Detect) B. pertussis DNA (PCR) (Not Detecte) B.parapertussis DNA PCR (Not Detecte) Coronavirus OC43 (PCR) (Not Detect) Coronavirus HKU1 (PCR) (Not Detect) Coronavirus 229E (PCR) (Not Detect) SARS-CoV-2 (PCR) (Not Detecte) Coronavirus NL63 (PCR) (Not Detect) Human Metapneumovir PCR (Not Detect) Influenza Type A (PCR) (Not Detect) Influenza Type B (PCR) (Not Detect) M. pneumoniae (PCR) (Not Detect) Parainfluenza 1 (PCR) (Not Detect) Parainfluenza 2 (PCR) (Not Detect) Parainfluenza 3 (PCR) (Not Detect) Parainfluenza 4 (PCR) (Not Detect) RSV (PCR) (Not Detect) Entero/Rhino (PCR) (Not Detect) 03/16/21 03/16/21 03/16/21 Range/Units 17:16 18:06 18:36 WBC (4.5-11.0) X10^3/uL RBC (4.0-5.2) X10^6/uL Hgb (12.0-16.0) g/dL Hct (36-46) % MCV (80-100) fL MCH (26-34) PG MCHC (30-36) % RDW (11.6-14.8) % Plt Count (150-400) X10^3/uL Neut % (Auto) (50-75) % Lymph % (Auto) (25-40) % [place] % (Auto) (3-14) % Eos % (Auto) (2-4) % Baso % (Auto) (0-2) % Neut # (Auto) (3189-9925) /uL Lymph # (Auto) (7520-9961) /uL [place] # (Auto) (0-900) /uL Eos # (Auto) (0-450) /uL Baso # (Auto) (0-100) /uL D-Dimer 446 H (<230) ng/mL ABG pH 7.53 H (7.35-7.45) ABG pCO2 31.6 L (35-45) mmHg ABG pO2 73 L (80-100) mmHg ABG HCO3 26 (22-26) mmol/L ABG Total CO2 27 (21-31) mmol/L ABG O2 Saturation 96 (95-100) % ABG Base Excess 3.0 H (-2-2) mmol/L FiO2 21 Sodium (137-145) mmol/L Potassium (3.4-5.1) mmol/L Chloride (98-107) mmol/L Carbon Dioxide (22-32) mmol/L BUN (7-17) mg/dL Creatinine (0.52-1.04) mg/dL Estimated GFR (>60) mL/min BUN/Creatinine Ratio (6-22) Glucose (70-100) mg/dL Lactate (0.7-2.1) mmol/L Calcium (8.4-10.2) mg/dL Total Bilirubin (0.2-1.3) mg/dL AST (14-36) IU/L ALT (<35) IU/L Alkaline Phosphatase (38-126) U/L Total Protein (6.3-8.2) g/dL Albumin (3.5-5.0) g/dL Globulin (1.7-4.1) g/dL Albumin/Globulin Ratio (1.0-2.8) Chlamy pneumoniae PCR Not detected (Not Detect) Adenovirus (PCR) Not detected (Not Detect) B. pertussis DNA (PCR) Not detected (Not Detecte) B.parapertussis DNA PCR Not detected (Not Detecte) Coronavirus OC43 (PCR) Not detected (Not Detect) Coronavirus HKU1 (PCR) Not detected (Not Detect) Coronavirus 229E (PCR) Not detected (Not Detect) SARS-CoV-2 (PCR) Not detected (Not Detecte) Coronavirus NL63 (PCR) Not detected (Not Detect) Human Metapneumovir PCR Not detected (Not Detect) Influenza Type A (PCR) Not detected (Not Detect) Influenza Type B (PCR) Not detected (Not Detect) M. pneumoniae (PCR) Not detected (Not Detect) Parainfluenza 1 (PCR) Not detected (Not Detect) Parainfluenza 2 (PCR) Not detected (Not Detect) Parainfluenza 3 (PCR) Not detected (Not Detect) Parainfluenza 4 (PCR) Not detected (Not Detect) RSV (PCR) Not detected (Not Detect) Entero/Rhino (PCR) Not detected (Not Detect) Point of Care Testing Test Results Negative Urine Dip Bedside Urine Glucose Negative Bedside Urine Bilirubin - Negative Bedside Urine Ketone - Negative Urine Specific [place] 1.015 Bedside Urine Occult Blood - Negative Bedside Urine pH 6 Bedside Urine Protein - Negative Bedside Urine Urobilinogen - Negative Bedside Urine Nitrite - Negative Bedside Urine Leukocytes - Negative Esterase Imaging Data Chest x-ray: Radiologist's Impression: Monalisa Morse 36 F [address] [id number] ReportSigned Patient: Monalisa Morse#: [id number]: 1985Acct:[id number]/Sex: 36 / FDate of Service: 03/16/21Loc: EDAccession Number: [id number] Procedure: XR chest 2V Ordering Provider: Frederick Morrow D.O. PROCEDURE: XR CHEST 2V INDICATIONS: shortness of breath TECHNIQUE: 2 views of the chest were acquired. COMPARISON: [facility], , XR CHEST 2V, 03/09/2021, 17:09. FINDINGS: Surgical changes and devices: None. Lungs and pleura: Biopsy sellar lung consolidation compatible with pneumonia increased in size compared to March 09, 2021. No pleural effusions or pneumothorax. Mediastinum: Mediastinal contours are normal. Heart size is normal. Bones and chest wall: No suspicious bony abnormalities. Soft tissues appear unremarkable. IMPRESSION: Bilateral lower lobe pneumonia increased in size compared to March 09, 2021. 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 Critical Care Time Critical Care Time Critical Care Time: Yes Total Critical Care Time: 35 Attestation: The high probability of a clinically significant, sudden or life threatening deterioration of the [CV] system(s) required my full and direct attention, intervention and personal management. The aggregate critical care time was [35] minutes. This time is in addition to time spent performing reported procedures but includes the following: [x] Data Review and interpretation [x Patient assessment and monitoring of vital signs [x] Documentation []x Medication orders and management Discharge Plan Departure Patient Disposition: [facility] Clinical Impression: Pneumonia Prescriptions: No Action liothyronine 25 mcg tablet 25 mcg PO DAILY RF: 0 thyroid (pork) [[place] Thyroid] 90 mg tablet 90 mg PO DAILY RF: 0 levofloxacin 750 mg tablet 750 mg PO DAILY 10 Days RF: 0 Curcumin 95 % Powder 1 ea MISCELLANEOUS BID RF: 0 Daily Probiotic (10 Strains) 4 billion cell Capsule 3 cap PO DAILY RF: 0 levothyroxine 20 mcg/mL Solution 20 mcg PO QAM RF: 0 p-kmmtly-edctg-d-glucosamine See Rx Instructions .ROUTE .COMPLEX RF: 0 naltrexone 1.5 mg PO DAILY RF: 0
--- NOTE | 2021-03-16 15:25 | DI.RAD.S_ITS ---
PROCEDURE: XR CHEST 2V INDICATIONS: shortness of breath TECHNIQUE: 2 views of the chest were acquired. COMPARISON: [facility], CR, XR CHEST 2V, 03/09/2021, 17:09. FINDINGS: Surgical changes and devices: None. Lungs and pleura: Biopsy sellar lung consolidation compatible with pneumonia increased in size compared to March 09, 2021. No pleural effusions or pneumothorax. Mediastinum: Mediastinal contours are normal. Heart size is normal. Bones and chest wall: No suspicious bony abnormalities. Soft tissues appear unremarkable. IMPRESSION: Bilateral lower lobe pneumonia increased in size compared to March 09, 2021. Dictated by: Arin Whitaker MD, PhD on 03/16/2021 at 15:57 Approved by: Arin Whitaker MD, PhD on 03/16/2021 at 15:58
[2021-03-16 16:13] LABS: Add Manual Diff / Slide Review NO; Basophils Absolute Auto 0 /uL (0-100); Basophils Percent Auto 0.2 % (0-2); Eosinophils Absolute Auto 0 /uL (0-450); Eosinophils Percent Auto 0.1 % (2-4); Hematocrit 32.8 % (36-46); Hemoglobin 10.5 g/dL (12.0-16.0); Lymphocytes Absolute Auto 2700 /uL (1100-4500); Lymphocytes Percent Auto 19.1 % (25-40); Mean Corpuscular HGB Conc 32.2 % (30-36); Mean Corpuscular Hemoglobin 25.3 PG (26-34); Mean Corpuscular Volume 78.5 fL (80-100); Monocytes Absolute Auto 1500 /uL (0-900); Monocytes Percent Auto 10.7 % (3-14); Neutrophils Absolute Auto 9800 /uL (1500-7000); Neutrophils Percent Auto 69.9 % (50-75); Platelet Count 381 X10^3/uL (150-400); Red Blood Cell Count 4.17 X10^6/uL (4.0-5.2); Red Cell Distribution Width 14.5 % (11.6-14.8); White Blood Cell Count 14.1 X10^3/uL (4.5-11.0)
[2021-03-16 16:27] LABS: Alanine Aminotransferase 13 IU/L (<35); Albumin 3.6 g/dL (3.5-5.0); Albumin Globulin Ratio 1.1 (1.0-2.8); Alkaline Phosphatase 82 U/L (38-126); Aspartate Aminotransferase 16 IU/L (14-36); BUN Creatinine Ratio 9.1 (6-22); Bilirubin Total 0.2 mg/dL (0.2-1.3); Blood Urea Nitrogen 7 mg/dL (7-17); Calcium 9.5 mg/dL (8.4-10.2); Carbon Dioxide 27 mmol/L (22-32); Chloride 103 mmol/L (98-107); Estimated Glomerular Filt Rate > 60.0 mL/min (>60); Globulin 3.2 g/dL (1.7-4.1); Glucose 96 mg/dL (70-100); HEMOLYSIS < 15 (0-50); Potassium 3.7 mmol/L (3.4-5.1); Sodium 136 mmol/L (137-145); Total Protein 6.8 g/dL (6.3-8.2)
[2021-03-16 18:12] LABS: Fractionated Inspired Oxygen 21; HCO3 ABG 26 mmol/L (22-26); Oxygen Saturation ABG 96 % (95-100); PCO2 ABG 31.6 mmHg (35-45); PO2 ABG 73 mmHg (80-100); TCO2 ABG 27 mmol/L (21-31); pH ABG 7.53 (7.35-7.45)
[2021-03-16] MEDS: PIPERACILLIN/TAZO 4.5 GM in SODIUM CHLORIDE 0.9% 100 ML 25 ML IV (18:22)
[2021-03-16] MEDS: SODIUM CHLORIDE 0.9% 1,632.93 ML 544.31 ML IV (18:23)
[2021-03-16 18:53] LABS: D Dimer 446 ng/mL (<230)
[2021-03-16 19:48] LABS: Adenovirus Not Detected (Not Detect); B. parapertussis Not Detected (Not Detecte); Bordetella pertussis Not Detected (Not Detecte); Chlamydophila pneumoniae Not Detected (Not Detect); Coronavirus 229E Not Detected (Not Detect); Coronavirus HKU1 Not Detected (Not Detect); Coronavirus NL 63 Not Detected (Not Detect); Coronavirus OC43 Not Detected (Not Detect); Human Metapneumovirus Not Detected (Not Detect); Human Rhinovirus/Enterovirus Not Detected (Not Detect); Influenza A Not Detected (Not Detect); Influenza B Not Detected (Not Detect); Mycoplasma pneumoniae Not Detected (Not Detect); Parainfluenza Virus 1 Not Detected (Not Detect); Parainfluenza Virus 2 Not Detected (Not Detect); Parainfluenza Virus 3 Not Detected (Not Detect); Parainfluenza Virus 4 Not Detected (Not Detect); Respiratory Syncytial Virus Not Detected (Not Detect); SARS- CoV-2 Not Detected (Not Detecte)
[2021-03-16] MEDS: AZITHROMYCIN 500 MG in DEXTROSE 5% IN WATER 250 ML IV (21:13)
[2021-03-16] MEDS: ONDANSETRON 4 MG/2 ML INJ IV (22:23)
== END 2021-03-16 22:59 | disposition short-term general hospital (02) ==
PROVIDERS: Emergency Provider Emergency Medicine
DX: J18.9 Pneumonia, unspecified organism (principal); R05 Cough; M54.5 Low back pain; Z20.822 Contact with and (suspected) exposure to COVID-19
CPT/HCPCS: 36415; 36600; 71046; 80053; 81003; 81025; 82805; 83605; 85025; 85379; 87040; 87633; 93005; 93010; 96365; 96366; 96367; 96375; 99285; 99291; J2405; J2543

== ENCOUNTER → 2021-07-01 18:17 | Outpatient (CLI) | payer OTHER, SELFPAY ==
--- NOTE | 2021-07-01 18:21 | DI.RAD.S_ITS ---
PROCEDURE: XR FOOT LT MIN 3V INDICATIONS: lt foot pain TECHNIQUE: 3 views of the foot were acquired. COMPARISON: None. FINDINGS: Bones: No fractures or dislocations. No suspicious bony lesions. Soft tissues: No tibiotalar joint effusion. Achilles tendon appears normal. IMPRESSION: Unremarkable left foot radiographs Approved by: Gera Dozier M.D. on 07/01/2021 at 17:48
== END ==
PROVIDERS: Referring Provider Nurse Practitioner; Visit Provider Nurse Practitioner
DX: M79.672 Pain in left foot (principal)
CPT/HCPCS: 73630

== ENCOUNTER → 2021-07-10 17:33 | Outpatient (CLI) | payer OTHER, SELFPAY ==
[2021-07-10 18:17] LABS: Alanine Aminotransferase 66 IU/L (<35); Albumin 4.4 g/dL (3.5-5.0); Albumin Globulin Ratio 2.1 (1.0-2.8); Alkaline Phosphatase 63 U/L (38-126); Aspartate Aminotransferase 21 IU/L (14-36); BUN Creatinine Ratio 16.4 (6-22); Bilirubin Total 0.3 mg/dL (0.2-1.3); Blood Urea Nitrogen 20 mg/dL (7-17); Calcium 9.4 mg/dL (8.4-10.2); Carbon Dioxide 26 mmol/L (22-32); Chloride 104 mmol/L (98-107); Estimated Glomerular Filt Rate 49.6 mL/min (>60); Globulin 2.1 g/dL (1.7-4.1); Glucose 144 mg/dL (70-100); HEMOLYSIS < 15 (0-50); Potassium 4.1 mmol/L (3.4-5.1); Sodium 136 mmol/L (137-145); Total Protein 6.5 g/dL (6.3-8.2)
== END ==
PROVIDERS: Referring Provider Internal Medicine Pulmonary Disease; Visit Provider Internal Medicine Pulmonary Disease
DX: R74.01 Elevation of levels of liver transaminase levels (principal)
CPT/HCPCS: 36415; 80053

== ENCOUNTER → 2021-08-26 11:04 | Outpatient (CLI) | payer OTHER, SELFPAY ==
[2021-08-26 14:17] LABS: COVID-19 CEPHEID PCR (VTM/NP) Negative (Negative)
== END ==
PROVIDERS: Visit Provider Nurse Practitioner Family
DX: Z20.822 Contact with and (suspected) exposure to COVID-19 (principal)
CPT/HCPCS: U0003

== ENCOUNTER → 2021-09-21 11:05 | Outpatient (CLI) | payer OTHER, SELFPAY ==
[2021-09-21 14:24] LABS: COVID-19 CEPHEID PCR (VTM/NP) Negative (Negative)
== END ==
PROVIDERS: Visit Provider Nurse Practitioner Family
DX: Z20.822 Contact with and (suspected) exposure to COVID-19 (principal)
CPT/HCPCS: U0003

== ENCOUNTER → 2021-11-07 12:34 | Outpatient (CLI) | payer OTHER, SELFPAY ==
[2021-11-07 15:46] LABS: Free T3, Triiodothyronine Free 3.19 pg/mL (2.77-5.27); Free T4, Direct Thyroxine 0.62 ng/dL (0.78-2.19)
[2021-11-07 15:59] LABS: Thyroid Stimulating Hormone 0.016 uIU/mL (0.47-4.68)
[2021-11-07 16:33] LABS: Folate 6.1 ng/mL (2.76-20.0); Vitamin B12 522 pg/mL (239-931)
[2021-11-09 16:10] LABS: Vitamin D 25 Hydroxy (D3) 16.4 ng/mL (30.0-100.0)
[2021-11-10 19:49] LABS: Anti Thyroglobulin Antibody <1.0 IU/mL (0.0-0.9); Thyroid Peroxidase Antibodies <8 IU/mL (0-34)
[2021-11-11 09:16] LABS: Vitamin A 62.6 ug/dL (18.9-57.3)
[2021-11-11 09:17] LABS: Alpha-Tocopherol 16.8 mg/L (5.9-19.4); Gamma-Tocopherol 0.7 mg/L (0.7-4.9)
[2021-11-17 04:08] LABS: Nicotinamide 14.4 ng/mL (5.2-72.1); Nicotinic Acid <5.0 ng/mL (0.0-5.0)
== END ==
PROVIDERS: Referring Provider Naturopath; Visit Provider Naturopath
DX: E06.3 Autoimmune thyroiditis (principal); K90.9 Intestinal malabsorption, unspecified; K90.0 Celiac disease; E61.7 Deficiency of multiple nutrient elements
CPT/HCPCS: 82306; 82525; 82607; 82746; 83785; 84439; 84443; 84446; 84481; 84590; 84591; 84597; 86376; 86800

== ENCOUNTER → 2021-12-16 11:28 | Outpatient (CLI) | payer OTHER, SELFPAY ==
[2021-12-16 13:46] LABS: COVID-19 CEPHEID PCR (VTM/NP) Negative (Negative)
== END ==
PROVIDERS: Visit Provider Family Medicine Sleep Medicine
DX: Z20.822 Contact with and (suspected) exposure to COVID-19 (principal)
CPT/HCPCS: C9803; U0003; U0005

== ENCOUNTER → 2022-02-26 11:29 | Outpatient (CLI) | payer OTHER, SELFPAY ==
[2022-02-26 14:06] LABS: COVID-19 CEPHEID PCR (VTM/NP) Negative (Negative)
== END ==
PROVIDERS: Visit Provider Family Medicine Sleep Medicine
DX: Z20.822 Contact with and (suspected) exposure to COVID-19 (principal)
CPT/HCPCS: C9803; U0003; U0005

== ENCOUNTER → 2022-03-12 16:52 | Outpatient (CLI) | payer OTHER, SELFPAY ==
--- NOTE | 2022-03-12 16:55 | DI.RAD.S_ITS ---
PROCEDURE: XR RIBS LT MIN 3V W CXR1V INDICATIONS: left rib pain TECHNIQUE: 2 views of the left ribs were acquired, along with a single view chest. COMPARISON: [facility], , XR CHEST 2V, 03/16/2021, 15:31. FINDINGS: Surgical changes and devices: None. Bones and chest wall: No fractures or dislocations. No suspicious bony lesions. Overlying soft tissues appear unremarkable. Lungs and pleura: No pleural effusions or pneumothorax. Lungs appear clear. Mediastinum: Mediastinal contours appear normal. Heart size is normal. IMPRESSION: No displaced left-sided rib fracture. Dictated by: Wilman Jensen M.D. on 03/12/2022 at 17:25 Approved by: Wilman Jensen M.D. on 03/12/2022 at 17:26
== END ==
PROVIDERS: PCP Naturopath; Referring Provider Physician Assistant; Visit Provider Physician Assistant
DX: R07.81 Pleurodynia (principal)
CPT/HCPCS: 71101

== ENCOUNTER → 2022-06-28 14:28 | Outpatient (CLI) | payer OTHER, SELFPAY ==
[2022-06-28 15:50] LABS: COVID-19 CEPHEID PCR (VTM/NP) POSITIVE (Negative)
== END ==
PROVIDERS: PCP Naturopath; Referring Provider Internal Medicine Pulmonary Disease; Visit Provider Internal Medicine Pulmonary Disease
DX: U07.1 COVID-19 (principal)
CPT/HCPCS: C9803; U0003; U0005

== ENCOUNTER → 2022-08-16 10:59 | Outpatient (CLI) | payer OTHER, SELFPAY ==
[2022-08-16 12:27] LABS: COVID-19 CEPHEID PCR (VTM/NP) Negative (Negative)
[2022-08-16 16:27] LABS: Influenza A - CEPHEID Flu A NEGATIVE (NEGATIVE); Influenza B - CEPHEID Flu B NEGATIVE (NEGATIVE)
== END ==
PROVIDERS: PCP Naturopath; Visit Provider Student in an Organized Health Care Education/Training Program
DX: R52 Pain, unspecified (principal); Z20.822 Contact with and (suspected) exposure to COVID-19
CPT/HCPCS: 87502; U0003; U0005

== ENCOUNTER 2022-08-29 01:25 | Emergency (ER) | payer OTHER, SELFPAY ==
[2022-08-29] VITALS (10 sets, daily range): BP systolic 112–168; BP diastolic 58–77; PULSE 63–79; RESP 14–22; TEMP 36.6; O2SAT 98–100; BMI 34.2
--- NOTE | 2022-08-29 01:50 | PC.NURSE ---
Assessment completed - NAD
[2022-08-29 02:53] LABS: Alanine Aminotransferase 26 IU/L (<35); Albumin Globulin Ratio 1.3 (1.0-2.8); Alkaline Phosphatase 68 U/L (38-126); Aspartate Aminotransferase 26 IU/L (14-36); BUN Creatinine Ratio 16.4 (6-22); Bilirubin Total 0.2 mg/dL (0.2-1.3); Blood Urea Nitrogen 12 mg/dL (7-17); Calcium 9.3 mg/dL (8.4-10.2); Carbon Dioxide 23 mmol/L (22-32); Chloride 105 mmol/L (98-107); Estimated Glomerular Filt Rate > 60 mL/min (>60); Globulin 3.2 g/dL (1.7-4.1); Glucose 110 mg/dL (70-100); HEMOLYSIS < 15 (0-50); Lipase 101 U/L (23-300); Potassium 3.8 mmol/L (3.4-5.1); Sodium 138 mmol/L (137-145); Total Protein 7.2 g/dL (6.3-8.2)
[2022-08-29 03:06] LABS: Add Manual Diff / Slide Review NO; Basophils Absolute Auto 100 /uL (0-100); Basophils Percent Auto 1.3 % (0-2); Eosinophils Absolute Auto 200 /uL (0-450); Eosinophils Percent Auto 2.5 % (2-4); Hematocrit 35.7 % (36-46); Lymphocytes Absolute Auto 2200 /uL (1100-4500); Lymphocytes Percent Auto 27.4 % (25-40); Mean Corpuscular HGB Conc 33.5 % (30-36); Mean Corpuscular Hemoglobin 25.9 PG (26-34); Mean Corpuscular Volume 77.4 fL (80-100); Monocytes Absolute Auto 1000 /uL (0-900); Monocytes Percent Auto 12.7 % (3-14); Neutrophils Absolute Auto 4500 /uL (1500-7000); Neutrophils Percent Auto 56.1 % (50-75); Platelet Count 252 X10^3/uL (150-400); Red Blood Cell Count 4.61 X10^6/uL (4.0-5.2); Red Cell Distribution Width 14.9 % (11.6-14.8)
--- NOTE | 2022-08-29 03:07 | DI.US.S_ITS ---
PROCEDURE: US PELVIC COMPLETE INDICATIONS: LOWER PELVIC PAIN. HISTORY OF OVARIAN CYST RUPTURE. TECHNIQUE: Real-time scanning was performed of the pelvic organs, with image documentation. Additional endovaginal scanning was necessary due to incomplete visualization of the adnexal and endometrial structures by transabdominal scanning. COMPARISON: None. FINDINGS: Uterus: Uterus is anteverted and normal in size at 8.8 x 4.5 x 3.8 cm. The myometrium is heterogeneous. The endometrium measures 5 mm combined thickness. No fibroids seen. Nabothian cysts. Trace fluid in the cervical canal. Ovaries: The right ovary measures 3.7 x 2.8 x 2.6 cm, with a calculated ovarian volume of 14 cc. The left ovary measures 5.1 x 2.5 x 2.1 cm, with a calculated ovarian volume of 14 cc. The ovaries have a normal sonographic appearance. Less than 12 follicles can be seen in each ovary. Blood flow seen in both ovaries. Band like area of isoechoic tissue extending between the right and left ovaries. No increased vascularity. Isoechoic region in the right ovary measuring 2.2 cm. This could represent a collapsed cyst. Other: Moderate amount of complex fluid in the pelvis. IMPRESSION: 1. Endometrium measures 5 mm. 2. Possible collapsed hemorrhagic right ovarian cyst measuring 2.2 cm. Endometrioma is also in the differential diagnosis. 3. Bandlike area of tissue extending between the adnexae. Low suspicion for hydrosalpinx. Adhesion or bowel could have a similar appearance. 4. Moderate amount of complex fluid in the pelvis. A follow-up pelvic ultrasound in 6-12 weeks would be helpful for further evaluation. Pelvic MRI with IV contrast could also be considered. This report is concordant with the overnight preliminary interpretation. We strive to produce accurate, complete, and clear reports of imaging services. To assist us in improving patient care, this report was composed using standard report templates and voice recognition software. Therefore, it may contain abnormal punctuation, insertions and/or omissions. Occasional wrong-word or sound-alike substitutions may occur. Though we review the report and make efforts to correct it, we do recommend that the report be read carefully in proper context to recognize any text inaccuracies. Dictated by: Wilman Jensen M.D. on 08/29/2022 at 6:56 Approved by: Wilman Jensen M.D. on 08/29/2022 at 7:04
--- NOTE | 2022-08-29 03:08 | PC.NURSE ---
Ambulatory with steady gait to the bathroom
--- NOTE | 2022-08-29 03:08 | ED.ABDPAIN ---
HPI - Abdominal Pain General Chief Complaint: Abdominal Pain Stated Complaint: abd. pain Time Seen by Provider: 08/29/22 02:29 Source: patient Mode of arrival: Ambulatory Limitations: no limitations History of Present Illness HPI narrative: This is a 37 year old female with history of anca vasculitis, Jackie's, celiac disease, CVA ID who is on Rituxan, IVIG monthly, [place] thyroid and naltrexone. Patient states she is not currently on oral steroids. She notes she is had a history of ovarian cyst she states she has having lower pelvic pain similar to when she is had cyst but it was much stronger than her typical. She denies fevers or chills. She states pain came on suddenly about 12:30 a.m. and has been persistent it is better she is been sitting in emergency department but not gone. She denies fevers or chills. She had nausea but no active vomiting. Denies diarrhea, constipation, black or bloody stools. No dysuria, urgency or frequency. No vaginal bleeding or discharge. She states she is about 13 days into her usual menstrual cycle. Patient has had prior emergency , tonsillectomy she is had prior bronchoscopy and EGDs. She states her only allergy to medication was adverse reaction oxycodone that caused her to hallucinate. Related Data Home Medications Medication Instructions Recorded Confirmed liothyronine 25 mcg tablet 25 mcg PO DAILY 08/01/18 08/16/22 thyroid (pork) 90 mg tablet 90 mg PO DAILY 08/01/18 08/16/22 ([place] Thyroid) Lactobac 51-Bifidobac 3 cap PO DAILY 03/16/21 08/16/22 3-L.lactis-S.thermophilus 4 billion cell capsule (Daily Probiotic (10 Strains)) levothyroxine 20 mcg/mL oral 20 mcg PO QAM 03/16/21 08/16/22 solution [id number]-[id number]-d-glucosamine See Rx Instructions .Route .COMPLEX 03/16/21 08/16/22 naltrexone 1.5 mg PO DAILY 03/16/21 08/16/22 turmeric (bulk) 95 % powder 1 ea miscellaneous BID 03/16/21 08/16/22 (Curcumin) Previous Rx's Medication Instructions Recorded pseudoephedrine HCl 60 mg tablet 60 mg PO Q4-6H PRN nasal 10/22/22 congestion #30 tabs Allergies Allergy/AdvReac Type Severity Reaction Status Date / Time hydrocodone Allergy Severe hallucinati Verified 08/29/22 01:39 ons/visual/ auditory oxycodone AdvReac Vis/Auditory Verified 08/16/22 10:27 Hallucinations Review of Systems Review of Systems ROS Unobtainable: All systems reviewed & are unremarkable except as noted in HPI and below Patient History Medical History Autoimmune disease Autoimmune skin disease Celiac disease Jackie's disease Hypothyroidism Surgical History H/O endoscopy History of Hx of tonsillectomy Social History Smoking Status: Never smoker Smoking Status: Never smoker alcohol intake frequency: 0-2 drinks per day Substance Use Type: does not use Exam Narrative Exam Narrative: GENERAL: Alert and oriented x three, mild distress while seated but when she stands up to walk to the bathroom appears quite uncomfortable. HEENT: Head normocephalic, atraumatic, EOMI, pupils reactive, face symmetric, moist mucous membranes NECK: Supple, full range of motion CARDIOVASCULAR: Regular rate and rhythm without murmurs, rubs or gallops. RESPIRATORY: Breath sounds equal bilaterally, no wheezes rales or rhonchi. ABDOMEN: Soft, lower pelvic tenderness generalized. Normoactive bowel sounds all 4 quadrants. No guarding or rebound, rigidity, no mass. Nondistended. : No CVA tenderness EXTREMITIES: Normal range of motion, no clubbing or edema. Neurovascularly intact NEUROLOGICAL: Cranial nerves II through XII grossly intact. Moving all extremities SKIN: Warm, dry, no petechiae, no rashes or lesions. Initial Vital Signs Initial Vital Signs: Vital Signs Temperature 98 F 08/29/22 01:39 Pulse Rate 73 08/29/22 01:39 Respiratory Rate 22 08/29/22 01:39 Blood Pressure 168/77 H 08/29/22 01:39 Pulse Oximetry 100 08/29/22 01:39 Oxygen Delivery Method 08/29/22 01:39 Course Orders Ordered: ED Orders 08/29/22 02:30 Complete Blood Count AUTO DIFF Stat Comprehensive Metabolic Panel Stat Lipase Stat 08/29/22 03:07 US pelvic complete Stat Ondansetron HCl (Ondansetron 4 Mg/2 Ml Inj) 4 mg IV Q6HR PRN PRN Reason: Nausea And Vomiting Discontinued Medications Ketorolac Tromethamine (Ketorolac 30 Mg/Ml Vial) 15 mg IV NOW ONE Stop: 08/29/22 02:30 Last Admin: 08/29/22 03:13 Dose: 15 mg Documented By: SB Consultations Consultation #1: Dr. 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 Short follow up. Discussed patient is still quite painful. Recommends short term pain control. To be seen shortly and may go for laproscopic. Strict return precautions. Time: 07:29 Vital Signs Vital signs: Vital Signs - 8 hr 08/29/22 01:39 08/29/22 01:55 08/29/22 01:57 Temperature 98 F Pulse Rate 73 78 71 Respiratory Rate 22 Blood Pressure 168/77 H Pulse Oximetry 100 100 99 Oxygen Delivery Method Room Air 08/29/22 01:58 08/29/22 01:58 08/29/22 02:00 Temperature Pulse Rate 71 Respiratory Rate Blood Pressure 112/61 118/58 L Pulse Oximetry 99 Oxygen Delivery Method 08/29/22 02:00 08/29/22 02:30 08/29/22 02:30 Temperature Pulse Rate 73 75 Respiratory Rate Blood Pressure 141/69 H Pulse Oximetry 99 99 Oxygen Delivery Method 08/29/22 03:00 08/29/22 03:01 08/29/22 03:01 Temperature Pulse Rate 79 76 Respiratory Rate Blood Pressure 128/61 Pulse Oximetry 98 98 Oxygen Delivery Method 08/29/22 03:30 Temperature Pulse Rate 63 Respiratory Rate 14 Blood Pressure Pulse Oximetry Oxygen Delivery Method MDM - Abdominal Pain Lab Data Result diagrams: 08/29/22 02:30 08/29/22 02:30 Labs: Lab Results 08/29/22 08/29/22 Range/Units 02:30 02:30 WBC 8.0 (4.5-11.0) X10^3/uL RBC 4.61 (4.0-5.2) X10^6/uL Hgb 12.0 (12.0-16.0) g/dL Hct 35.7 L (36-46) % MCV 77.4 L (80-100) fL MCH 25.9 L (26-34) PG MCHC 33.5 (30-36) % RDW 14.9 H (11.6-14.8) % Plt Count 252 (150-400) X10^3/uL Neut % (Auto) 56.1 (50-75) % Lymph % (Auto) 27.4 (25-40) % Moca % (Auto) 12.7 (3-14) % Eos % (Auto) 2.5 (2-4) % Baso % (Auto) 1.3 (0-2) % Neut # (Auto) 4500 (0999-1629) /uL Lymph # (Auto) 2200 (3360-8650) /uL Moca # (Auto) 1000 H (0-900) /uL Eos # (Auto) 200 (0-450) /uL Baso # (Auto) 100 (0-100) /uL Sodium 138 (137-145) mmol/L Potassium 3.8 (3.4-5.1) mmol/L Chloride 105 (98-107) mmol/L Carbon Dioxide 23 (22-32) mmol/L BUN 12 (7-17) mg/dL Creatinine 0.73 (0.52-1.04) mg/dL Estimated GFR > 60 (>60) mL/min BUN/Creatinine Ratio 16.4 (6-22) Glucose 110 H (70-100) mg/dL Calcium 9.3 (8.4-10.2) mg/dL Total Bilirubin 0.2 (0.2-1.3) mg/dL AST 26 (14-36) IU/L ALT 26 (<35) IU/L Alkaline Phosphatase 68 (38-126) U/L Total Protein 7.2 (6.3-8.2) g/dL Albumin 4.0 (3.5-5.0) g/dL Globulin 3.2 (1.7-4.1) g/dL Albumin/Globulin Ratio 1.3 (1.0-2.8) Lipase 101 (23-300) U/L Point of care testing: Point of Care Testing Test Results Negative Urine Dip Bedside Urine Glucose Negative Bedside Urine Bilirubin - Negative Bedside Urine Ketone - Negative Urine Specific [place] 1.010 Bedside Urine Occult Blood - Negative Bedside Urine pH 6.5 Bedside Urine Protein - Negative Bedside Urine Urobilinogen - Negative Bedside Urine Nitrite - Negative Bedside Urine Leukocytes - Negative Esterase Imaging Data US - TRAVEL PROFESSIONAL: Radiologist's Impression: Uterus normal size and position. Isoechoic lesion right ovary probable dense hemorrhagic cyst can not exclude endometrioma. Functional cyst left ovary. Tubular avascular complex collection measuring 5 x 2 x 1.8 cm extending between the adnexa can not exclude hemo salpinx or less likely pyosalpinx. Moderate free fluid pelvis slightly complex may contain clot. MDM Narrative Medical decision making narrative: This is a 37 year old female with complaint of pelvic pain abrupt onset quite significant she is had prior ovarian cyst feels similar in location but is much more intense. She does still have her appendix. After discussion with abrupt onset urine is negative, point of care urine does not show any signs of infection or hematuria suggesting kidney stones. Patient's labs overall are reassuring. Patient and I discussed pelvic ultrasound if this is inconclusive may get CT abdomen pelvis as she does appear quite uncomfortable. Discussed with Dr. 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 Reviewed ultrasound findings directly with Dr. Araujo. Discussed he is still quite painful. Patient has department about 6 hours from onset she has been hemodynamically stable there was delay with a 3 hour delay in receiving imaging report. He will have office call her 1st thing in the morning states strict return precautions may need to go for laparoscopic exploration. HCG is negative discussed we have a urine hCG and not a quantitative states this is not needed. Discussed findings with patient strict return precautions and findings today. Discharge Plan Departure Patient Disposition: Home Clinical Impression: Hematosalpinx Activity Restrictions/Additional Instructions: Please follow-up Tuesday with ACCOUNTANT HELPER. I spoke with Dr. Araujo he is aware of you and your findings today. You have blood in your fallopian tube and they need to see you on Tuesday and may take you for laparoscopic surgery. You may take Tylenol up to a 1000 mg every 6 hours and/or ibuprofen up to 800 mg every 8 hours. Please return for worsening pain, lightheadedness, passing out, vomiting, vaginal bleeding or other new or concerning changes. Prescriptions: No Action pseudoephedrine HCl 60 mg tablet 60 mg PO Q4-6H PRN (Reason: nasal congestion) Qty: 30 0RF Rx Instructions: DNExceed 4 doses/24h liothyronine 25 mcg tablet 25 mcg PO DAILY thyroid (pork) [[place] Thyroid] 90 mg tablet 90 mg PO DAILY Curcumin 95 % Powder 1 ea MISCELLANEOUS BID Daily Probiotic (10 Strains) 4 billion cell Capsule 3 cap PO DAILY levothyroxine 20 mcg/mL Solution 20 mcg PO QAM [id number]-xcvvuy-qpknr-d-glucosamine See Rx Instructions .ROUTE .COMPLEX Rx Instructions: 900 mg 2 x day naltrexone 1.5 mg PO DAILY Referrals: Shonda Martinez ND [Primary Care Provider] - Bill Araujo MD [Physician] -
[2022-08-29] MEDS: KETOROLAC 30 MG/ML VIAL 15 MG IV (03:13)
--- NOTE | 2022-08-29 04:21 | PC.NURSE ---
U/S remains at bedside
--- NOTE | 2022-08-29 04:25 | PC.NURSE ---
U/S complete at this time
--- NOTE | 2022-08-29 05:15 | PC.NURSE ---
Resting quietly in NAD - no needs voiced - awaiting CT and results - denies needs for zofran - states that her nausea resolved
--- NOTE | 2022-08-29 06:02 | PC.NURSE ---
Ambulatory to the bathroom with steady gait - updated on status by MD - no further needs voiced
--- NOTE | 2022-08-29 06:45 | PC.NURSE ---
Ambulatory to the bathroom - steady gait
--- NOTE | 2022-08-29 07:25 | PC.NURSE ---
Report to dayshift RN team - care relinquished at this time
== END 2022-08-29 07:50 | disposition home or self-care (01) ==
PROVIDERS: Emergency Provider Emergency Medicine; PCP Naturopath
DX: N83.6 Hematosalpinx (principal)
CPT/HCPCS: 36415; 76830; 76856; 80053; 81003; 81025; 83690; 85025; 96374; 99284; J1885

== ENCOUNTER → 2024-12-17 16:38 | Outpatient (CLI) | payer OTHER, SELFPAY ==
[2024-12-17 18:06] LABS: Influenza A - CEPHEID Flu A POSITIVE (NEGATIVE); Influenza B - CEPHEID Flu B NEGATIVE (NEGATIVE); Respiratory Syncytial Virus Negative (Negative)
[2024-12-17 18:11] LABS: COVID-19 CEPHEID 4-PLEX PCR Negative (Negative)
== END ==
PROVIDERS: PCP Naturopath; Visit Provider Nurse Practitioner Family
DX: R05.9 Cough, unspecified (principal)
CPT/HCPCS: 0241U

== ENCOUNTER → 2024-12-17 17:22 | Outpatient (CLI) | payer OTHER, SELFPAY ==
--- NOTE | 2024-12-17 17:24 | DI.RAD.S_ITS ---
PROCEDURE: XR CHEST 2V INDICATIONS: Cough TECHNIQUE: 2 views of the chest were acquired. COMPARISON: [facility], CR, XR CHEST 2V, 03/16/2021, 15:31. [facility], CR, XR CHEST 2V, 03/09/2021, 17:09. FINDINGS: Surgical changes and devices: None. Lungs and pleura: Questionable left basilar opacity. No pleural effusions or pneumothorax. Mediastinum: Mediastinal contours are normal. Heart size is normal. Bones and chest wall: No suspicious bony abnormalities. Soft tissues appear unremarkable. IMPRESSION: Questionable left basilar opacity, may represent action. Dictated by: Delfino Antunez M.D. on 12/17/2024 at 18:31 Approved by: Delfino Antunez M.D. on 12/17/2024 at 18:32
== END ==
PROVIDERS: PCP Naturopath; Referring Provider Nurse Practitioner Family; Visit Provider Nurse Practitioner Family
DX: R05.9 Cough, unspecified (principal)
CPT/HCPCS: 0241U; 71046

== ENCOUNTER 2025-03-19 09:00 | Outpatient (RCR) | payer OTHER, SELFPAY ==
--- NOTE | 2025-02-26 16:12 | PT.OIE ---
Current Diagnoses Muscle weakness (generalized) (02/26/25) Pelvic and perineal pain (02/26/25) Past Medical History (Last Reviewed 08/29/22 @ 03:11 by Winnie Bass DO) Autoimmune disease Autoimmune skin disease Celiac disease Jackie's disease Hypothyroidism Past Surgical History (Last Reviewed 08/29/22 @ 03:11 by Winnie Bass DO) H/O endoscopy History of Hx of tonsillectomy Visit Care Team Role Provider Type Shonda Martinez ND Family Provider Non-Staff Primary Care Provider Specialty: Naturopathy Address: [address] [place], [place] [address] [address], [place], [address] Email: Erica Garcia DO Attending Provider Non-Staff Referring Provider Specialty: HYDROLOGICAL TECHNICAL OFFICER Address: [facility] [place], [facility] [address], [place], [address] Email: Physical Therapy Initial Evaluation PT-OP-A Visit Information Start: 02/24/25 12:39 Freq: Status: Active Protocol: Document 02/26/25 10:04 LRN (Rec: 02/26/25 10:51 LRN Laptop) Out-Patient Physical Therapy Visit Information Visit Information Visit Type Initial Evaluation Visit Start Time 10:04 Visit Stop Time 10:45 Visit Number 1 Evaluation Information Evaluation Date 02/26/25 Precautions Precautions Emergency 2019, hypothyroid controlled by meds . PT-OP-B Current Condition Start: 02/24/25 12:39 Freq: Status: Active Protocol: Document 02/26/25 10:04 LRN (Rec: 02/26/25 10:51 LRN Laptop) Current Condition History of Current Condition Onset Date 3-4 yrs ago, worsened in the past. Current Complaints L side abdom & dull/ achy/throbbing pn diffuse pn History of Current Condition Perineal and pelvic pain since 23 yo, suspected to have endometriosis that has worsened over the years. After , now has a lot of scar tissue and thinks the scar tissue is bound to ovaries and pain has worsened, different from menstrual pain . Referred by Erica Garcia @ [place] ([facility]) who will do surgery to remove endometriosis when able to. 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 Future Testing and Treatments Planned Planning surgery to remove scar tissue of endometriosis and scarring. Surgery planned in May 2025 . 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 Son born at 29.5 wks , so didn't have muscle separation but pt has felt more weakness in abdomen since (12/09/2018). Treatment Goals Patient/Caregiver Goals Pt goals: -Reduce pain - to improve desire to be interact with spouse for intercourse 1x/week (currently 2-3x/month). -Improve sense of mobility in lower abdomen making ex easier , and improve endurance and strength to become more physically active. Goal is to walk 4x/wk (previously walked 2x/month). -Independent w/HEP of trunk/ hip ROm and strength, self massage. 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 Moved from [place] to [facility] at end of Dec. and son has been sick a lot. Pt has limited time to exercise: one hour (after dropping son off at school before going to work). Currently works out at home ( strength training online w/ light wgts and cardio), 4-5x/ wk (30 min). Hypothyroid disorder. PT-OP-C Subjective Start: 02/24/25 12:39 Freq: Status: Active Protocol: Document 02/26/25 10:04 LRN (Rec: 02/26/25 10:51 LRN Laptop) Patient Questionnaires Pelvic Pain and Urgency/Frequency Patient Symptom Scale Pelvic Pain Score 8 OP-PT Pain Assessment Pain Assessment Grid Paper Pain Assessment Grid Completed Yes Location L Abdomen/lateral trunk Pain Location Details L abdomen & L lateral trunk Intensity 7 Scale Used Numeric (0 - 10) PT-OP-I Pelvic Floor Start: 02/24/25 12:39 Freq: Status: Active Protocol: Document 02/26/25 10:04 LRN (Rec: 02/26/25 10:51 LRN Laptop) Pelvic Floor Assessment Urine Other Leakage Causes No leakage. Bowel Other Bowel Symptoms No constipation Bowel Movement Frequency daily [place] Stool Chart Type 1-7 4 PT-OP-J Posture/Palpation/Skin Start: 02/24/25 12:39 Freq: Status: Active Protocol: Document 02/26/25 10:04 LRN (Rec: 02/26/25 10:51 LRN Laptop) Posture Evaluation Position Standing Head/C-Spine Posture Forward Head L-Spine Posture Increased Lordosis,Shifted Left Shoulder Posture (L) Elevated Pelvis Posture Anteriorly Tilted Knee Posture (L) Genu Valgus,(R) Genu Valgus Ankle/Foot Posture (L) Calcaneal Inversion,(R) Calcaneal Inversion Comments Posture Comments Level Iliac crests, sacrum L rotated. Palpation Assessment Location ABdomen Palpation Location ABdomen Palpation Findings Soft Tissue Tightness, Tenderness Palpation Details Tender in lower abdomen, along healed scar, NO diastasis rectus, Bladder restricted mobility: L Sideglide, R rot & R SB PT-OP-K Range of Motion Start: 02/24/25 12:39 Freq: Status: Active Protocol: Document 02/26/25 10:04 LRN (Rec: 02/26/25 10:51 LRN Laptop) Lumbar Spine Range of Motion Lumbar Spine Active Degrees Testing Position Standing Flexion 85 Extension 15 Rotation Left 40 Rotation Right 35 Lateral Flexion Left 20 Lateral Flexion Right 25 Comments Posterior R upper back, posterior L LB (scioliosis) Gulliver R upper, shift L lower Hip Goniometric Range of Motion Hip Right Passive Testing Position Supine Comments Deferred due to time constraints. Left Passive Testing Position Supine Comments Deferred due to time constraints. PT-OP-M Strength Start: 02/24/25 12:39 Freq: Status: Active Protocol: Document 02/26/25 10:04 LRN (Rec: 02/26/25 10:51 LRN Laptop) Hip Strength Hip Manual Muscle Testing Right Comments Strength is 5/5. Left External Rotation 3+ Fair+ Comments Strength is 5/5 except as indicated above. PT-OP-Q Treatments Start: 02/24/25 12:39 Freq: Status: Active Protocol: Document 02/26/25 10:04 LRN (Rec: 02/26/25 10:51 LRN Laptop) Self-Care/Home Management Treatment Education Other Education Discussed results of evaluation, and treatment, and at length goals, and plan of care (POC); pt agreeable to evaluation, goals, treatment and POC. PT-OP-T Assessment and Plan Start: 02/24/25 12:39 Freq: Status: Active Protocol: Document 02/26/25 10:04 LRN (Rec: 02/26/25 10:51 LRN Laptop) Physical Therapy Assessment Rehab Potential Rehabilitation Potential Excellent Evaluation Complexity Number of Personal Factors/Comorbidities 3 or More Number of Body Systems Impaired 4 or More Clinical Presentation at Evaluation Evolving Impairments Impairments Activity Tolerance,Functional Activities,Pain,Posture,ROM, Soft Tissue Mobility,Strength, Transfers Goals Three Impairment L>R Lower abdominal/L lateral trunk, and scar pain (05/09). Short Term Goal (STG) Pt will be educated in self care use of wand for PF stretching as needed. Snf Goal (LTG) Reduce pain - to improve desire to be interact with spouse for intercourse 1x/week (currently 2-3x/month). LTG Duration 07/18/25 Two Impairment Decreased trunk mobility reducing gonzalez for physical activity Short Term Goal (STG) Improve lower abdominal (trunk )/LE mobility making ex easier to be more compliant with increase in exercise/wk. STG Duration 05/09/25 Special Agent In Charge Goal (LTG) Improve aerobic exercise endurance and core strength to become more physically active with pt able to walk 4x/wk ( previously walked 2x/month). LTG Duration 07/18/25 One Impairment Pt lacks appropriate self care HEP Short Term Goal (STG) Pt will be independent with self abdominal STM to improve mobility. STG Duration 05/09/25 Special Agent In Charge Goal (LTG) Pt will be Independent w/HEP of trunk/hip ROM and strength. LTG Duration 07/18/25 Assessment Summary Assessment Pt is a 40 yo female who presents with lower abdominal pelvic pain and diagnosis of perineal pain that the pt denies having. Further assessment is needed for perineal region. She has abdominal and soft tissue tightness/tenderness, L >R in abdomen with restricted STM and pain. She has no apparent bowel or bladder involvement. The pt has postural and trunk mobility restrictions and reduced tolerance to exercise. Further assessment of hip mobility is needed. The pt will benefit from skilled physical therapy to work towards achieving the above stated goals. Physical Therapy Plan Frequency and Duration Frequency of Treatment 1x/Week Duration of treatment (weeks) 20 Plan of Care Start Date 02/26/25 Plan of Care End Date 07/18/25 Therapeutic Interventions Therapeutic Interventions Home Exercise Program,Joint Mobilizations,Manual Therapy, Neuromuscular Re-education, Self-Care/Home Management,Soft Tissue Mobilization,Taping, Therapeutic Activities, Therapeutic Exercises Modalities Cold Pack/Ice Massage,Hot Packs Next Visit Focus/Plan Next Note Type Treatment Note Next Visit Plan Next: Assess moustapha hip mobility /strength and trunk strength; pelvic floor for tenderness externally and internally. Wand HEP to reduce pain with intercourse. Discuss and educate pt in specifics for completion of Bladder Diary and I/S in tracking for 1 week for possible hydration/digestion concerns. Focus on manual therapy to abdomen (lower and general), lateral and posterior trunk. Ex: Strengthen core, hips and progress painfree aerobic ex.
--- NOTE | 2025-03-11 13:11 | PT-OP ANOTE ---
Per phone conv, pt thought her appt was tomorrow, but looking back at phone txts, notes she did get notified of appt today, apologizing for mistake in date. Recommended pt call into schedulers to schedule more appointments as she only has one more appt scheduled. Pt agreeable to calling to schedule more appts.
--- NOTE | 2025-03-19 17:53 | PT.OTN ---
Current Diagnoses Muscle weakness (generalized) (03/19/25) Pelvic and perineal pain (03/19/25) Physical Therapy Treatment Note PT-OP-A Visit Information Start: 02/24/25 12:39 Freq: Status: Active Protocol: Document 03/19/25 09:09 LRN (Rec: 03/19/25 09:50 LRN Laptop) Out-Patient Physical Therapy Visit Information Visit Information Visit Type Treatment Note Visit Start Time 09:09 Visit Stop Time 09:49 Visit Number 2 Evaluation Information Evaluation Date 02/26/25 Precautions Precautions Emergency 2019, hypothyroid controlled by meds . PT-OP-B Current Condition Start: 02/24/25 12:39 Freq: Status: Active Protocol: Document 02/26/25 10:04 LRN (Rec: 02/26/25 10:51 LRN Laptop) Current Condition History of Current Condition Onset Date 3-4 yrs ago, worsened in the past. Current Complaints L side abdom & dull/ achy/throbbing pn diffuse pn History of Current Condition Perineal and pelvic pain since 23 yo, suspected to have endometriosis that has worsened over the years. After , now has a lot of scar tissue and thinks the scar tissue is bound to ovaries and pain has worsened, different from menstrual pain . Referred by Erica Garcia @ [place] ([facility]) who will do surgery to remove endometriosis when able to. 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 5 yrs ago. Future Testing and Treatments Planned Planning surgery to remove scar tissue of endometriosis and scarring. Surgery planned in May 2025 . 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 Son born at 29.5 wks , so didn't have muscle separation but pt has felt more weakness in abdomen since (12/09/2018). Treatment Goals Patient/Caregiver Goals Pt goals: -Reduce pain - to improve desire to be interact with spouse for intercourse 1x/week (currently 2-3x/month). -Improve sense of mobility in lower abdomen making ex easier , and improve endurance and strength to become more physically active. Goal is to walk 4x/wk (previously walked 2x/month). -Independent w/HEP of trunk/ hip ROm and strength, self massage. 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 Moved from [facility] to [facility] at end of Dec. and son has been sick a lot. Pt has limited time to exercise: one hour (after dropping son off at school before going to work). Currently works out at home ( strength training online w/ light wgts and cardio), 4-5x/ wk (30 min). Hypothyroid disorder. PT-OP-C Subjective Start: 02/24/25 12:39 Freq: Status: Active Protocol: Document 03/19/25 09:09 LRN (Rec: 03/19/25 09:50 LRN Laptop) OP-PT Subjective Patient Comments Patient Comments States she has abdominal pain with BM's on L side mostly, but pain is constant, more pain starting 16-17 days before period and lessens to baseline pain after period. OP-PT Pain Assessment Location L Abdomen/lateral trunk Pain Location Details L abdomen & L lateral trunk Intensity 4 Scale Used Numeric (0 - 10) Description Aching,Throbbing Description- Other Sometimes sharp and stabbing. Other Pain Alleviating Factors STopping of period PT-OP-I Pelvic Floor Start: 02/24/25 12:39 Freq: Status: Active Protocol: Document 02/26/25 10:04 LRN (Rec: 02/26/25 10:51 LRN Laptop) Pelvic Floor Assessment Urine Other Leakage Causes No leakage. Bowel Other Bowel Symptoms No constipation Bowel Movement Frequency daily [place] Stool Chart Type 1-7 4 PT-OP-J Posture/Palpation/Skin Start: 02/24/25 12:39 Freq: Status: Active Protocol: Document 02/26/25 10:04 LRN (Rec: 02/26/25 10:51 LRN Laptop) Posture Evaluation Position Standing Head/C-Spine Posture Forward Head L-Spine Posture Increased Lordosis,Shifted Left Shoulder Posture (L) Elevated Pelvis Posture Anteriorly Tilted Knee Posture (L) Genu Valgus,(R) Genu Valgus Ankle/Foot Posture (L) Calcaneal Inversion,(R) Calcaneal Inversion Comments Posture Comments Level Iliac crests, sacrum L rotated. Palpation Assessment Location ABdomen Palpation Location ABdomen Palpation Findings Soft Tissue Tightness, Tenderness Palpation Details Tender in lower abdomen, along healed scar, NO diastasis rectus, Bladder restricted mobility: L Sideglide, R rot & R SB PT-OP-K Range of Motion Start: 02/24/25 12:39 Freq: Status: Active Protocol: Document 03/19/25 09:09 LRN (Rec: 03/19/25 09:50 LRN Laptop) Hip Goniometric Range of Motion Hip Right Passive Testing Position Supine Internal Rotation 10 External Rotation 70 Left Passive Testing Position Supine Internal Rotation 0 External Rotation 90 PT-OP-M Strength Start: 02/24/25 12:39 Freq: Status: Active Protocol: Document 02/26/25 10:04 LRN (Rec: 02/26/25 10:51 LRN Laptop) Hip Strength Hip Manual Muscle Testing Right Comments Strength is 5/5. Left External Rotation 3+ Fair+ Comments Strength is 5/5 except as indicated above. PT-OP-Q Treatments Start: 02/24/25 12:39 Freq: Status: Active Protocol: Document 03/19/25 09:09 LRN (Rec: 03/19/25 09:50 LRN Laptop) Therapeutic Exercises Supine Exercises R only Fig 4 Supine Exercise Name Fig 4 Side right Reps/Minutes 60 SH x 1 Comments Cued to stretch only to equal of L & stretch painfree. Lateral hip stretch Side bilateral Reps/Minutes 60 SH x 2 each Comments Cued to stretch painfree. Piriformis stretch Side bilateral Reps/Minutes 60 SH x 2 each Comments Cued to stretch painfree. Manual Therapy Treatment Consent Patient gave verbal consent for manual Yes treatment Soft Tissue Mobilization Scar Mobilization Type Myofascial Release Intensity/Depth Superficial Body Position Supine ABdomen Mobilization Type Myofascial Release Intensity/Depth Superficial Body Position Supine Self-Care/Home Management Treatment Activities Self-Care/Home Management Activities Issued & reviewed HEP: Piriformis, Lateral Hip and ( only until equal mobility) Fig 4 stretch R side. PT-OP-T Assessment and Plan Start: 02/24/25 12:39 Freq: Status: Active Protocol: Document 03/19/25 09:09 LRN (Rec: 03/19/25 09:50 LRN Laptop) Physical Therapy Assessment Goals Three Impairment L>R Lower abdominal/L lateral trunk, and scar pain (05/09). Short Term Goal (STG) Pt will be educated in self care use of wand for PF stretching as needed. Network Technology Instructor Goal (LTG) Reduce pain - to improve desire to be interact with spouse for intercourse 1x/week (currently 2-3x/month). LTG Duration 07/18/25 Two Impairment Decreased trunk mobility reducing gonzalez for physical activity Short Term Goal (STG) Improve lower abdominal (trunk )/LE mobility making ex easier to be more compliant with increase in exercise/wk. 03/19/25: HEP: Piriformis, Lateral Hip and (only until equal mobility) Fig 4 stretch R side. STG Duration 05/09/25 progressed 03/19/25 Group Home Goal (LTG) Improve aerobic exercise endurance and core strength to become more physically active with pt able to walk 4x/wk ( previously walked 2x/month). LTG Duration 07/18/25 One Impairment Pt lacks appropriate self care HEP Short Term Goal (STG) Pt will be independent with self abdominal STM to improve mobility. STG Duration 05/09/25 Group Home Goal (LTG) Pt will be Independent w/HEP of trunk/hip ROM and strength. 03/19/25: HEP: Piriformis, Lateral Hip and (only until equal mobility) Fig 4 stretch R side. LTG Duration 07/18/25 progressed 03/19/25 Assessment Summary Assessment 40 yo female, w/lower abdominal pelvic pain with dx perineal pain, pt denies having. She has abdominal & C -section soft tissue tightness (L>R), postural and trunk mobility restrictions and reduced tolerance to exercise. Today, pt demonstrates notable assymetry in hip mobility and extremely limited bilaterally with hip IR. Physical Therapy Plan Frequency and Duration Frequency of Treatment 1x/Week Duration of treatment (weeks) 20 Plan of Care Start Date 02/26/25 Plan of Care End Date 07/18/25 Next Visit Focus/Plan Next Note Type Treatment Note Next Visit Plan Next: Assess pelvic floor for tenderness externally and internally. Wand HEP to reduce pain with intercourse. Discuss and educate pt in specifics for completion of Bladder Diary and I/S in tracking for 1 week for possible hydration/digestion concerns. Focus on manual therapy to abdomen (lower and general), lateral and posterior trunk. Ex: Strengthen core, hips and progress painfree aerobic ex.
--- NOTE | 2025-05-21 17:47 | PT-OP ANOTE ---
Per phone conversation, pt is wanting to postpone therapy until closer to her endometriosis surgery date, and thinks it will be in July. She doesn't have the flexibility in her home schedule to return to therapy; therefore she requests discharge from PT.
--- NOTE | 2025-06-06 20:30 | PT.OPDS ---
Current Diagnoses Muscle weakness (generalized) (03/19/25) Pelvic and perineal pain (03/19/25) Visit Care Team Role Provider Type Shonda Martinez ND Family Provider Non-Staff Primary Care Provider Specialty: Naturopathy Address: [facility] Thomas[facility]dras [address] [place] [address], [id number] Email: Erica Garcia DO Attending Provider Non-Staff Referring Provider Specialty: INCIDENT RESPONSE ENGINEER Address: [facility] [employer] [facility], [address], [place], [address] Email: Visit Number Visit Number 2 Discharge Summary PT-OP-A Visit Information Start: 02/24/25 12:39 Freq: Status: Active Protocol: Document 03/19/25 09:09 LRN (Rec: 03/19/25 09:50 LRN Laptop) Out-Patient Physical Therapy Visit Information Visit Information Visit Type Treatment Note Visit Start Time 09:09 Visit Stop Time 09:49 Visit Number 2 Evaluation Information Evaluation Date 02/26/25 Precautions Precautions Emergency 2019, hypothyroid controlled by meds. PT-OP-B Current Condition Start: 02/24/25 12:39 Freq: Status: Active Protocol: Document 02/26/25 10:04 LRN (Rec: 02/26/25 10:51 LRN Laptop) Current Condition History of Current Condition Onset Date 3-4 yrs ago, worsened in the past. Current Complaints L side abdom & dull/achy/throbbing pn diffuse pn History of Current Perineal and pelvic pain since 23 yo, suspected to have Condition endometriosis that has worsened over the years. After , now has a lot of scar tissue and thinks the scar tissue is bound to ovaries and pain has worsened, different from menstrual pain. Referred by Erica Garcia @ [place] ([facility]) who will do surgery to remove endometriosis when able to. 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 [place]), Tests stopped 1.5 yrs ago. Future Testing and Planning surgery to remove scar tissue of endometriosis Treatments Planned and scarring. Surgery planned in May 2025. 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 Son born at 29.5 wks , so didn't have muscle separation but pt has felt more weakness in abdomen since (12/09/2018). Treatment Goals Patient/Caregiver Pt goals: Goals -Reduce pain - to improve desire to be interact with spouse for intercourse 1x/week (currently 2-3x/month). -Improve sense of mobility in lower abdomen making ex easier, and improve endurance and strength to become more physically active. Goal is to walk 4x/wk ( previously walked 2x/month). -Independent w/HEP of trunk/hip ROm and strength, self massage. Personal Factors Other Personal Has 6 yo son, is a Mental Health therapist working 30 [employer] That May hrs/week. Effect Therapy/ M[facility] to [facility] at end of Dec. and Recovery son has been sick a lot. Pt has limited time to exercise: one hour (after dropping son off at school before going to work). Currently works out at home (strength training online w /light wgts and cardio), 4-5x/wk (30 min). Hypothyroid disorder. PT-OP-C Subjective Start: 02/24/25 12:39 Freq: Status: Active Protocol: Document 03/19/25 09:09 LRN (Rec: 03/19/25 09:50 LRN Laptop) OP-PT Subjective Patient Comments Patient Comments States she has abdominal pain with BM's on L side mostly, but pain is constant, more pain starting 16-17 days before period and lessens to baseline pain after period. OP-PT Pain Assessment Location L Abdomen/lateral trunk Pain Location L abdomen & L lateral trunk Details Intensity 4 Scale Used Numeric (0 - 10) Description Aching,Throbbing Description- Other Sometimes sharp and stabbing. Other Pain STopping of period Alleviating Factors PT-OP-I Pelvic Floor Start: 02/24/25 12:39 Freq: Status: Active Protocol: Document 02/26/25 10:04 LRN (Rec: 02/26/25 10:51 LRN Laptop) Pelvic Floor Assessment Urine Other Leakage Causes No leakage. Bowel Other Bowel Symptoms No constipation Bowel Movement daily Frequency [place] Stool Chart 4 Type 1-7 PT-OP-J Posture/Palpation/Skin Start: 02/24/25 12:39 Freq: Status: Active Protocol: Document 02/26/25 10:04 LRN (Rec: 02/26/25 10:51 LRN Laptop) Posture Evaluation Position Standing Head/C-Spine Posture Forward Head L-Spine Posture Increased Lordosis,Shifted Left Shoulder Posture (L) Elevated Pelvis Posture Anteriorly Tilted Knee Posture (L) Genu Valgus,(R) Genu Valgus Ankle/Foot Posture (L) Calcaneal Inversion,(R) Calcaneal Inversion Comments Posture Comments Level Iliac crests, sacrum L rotated. Palpation Assessment Location ABdomen Palpation Location ABdomen Palpation Findings Soft Tissue Tightness,Tenderness Palpation Details Tender in lower abdomen, along healed scar, NO diastasis rectus, Bladder restricted mobility: L Sideglide, R rot & R SB PT-OP-K Range of Motion Start: 02/24/25 12:39 Freq: Status: Active Protocol: Document 03/19/25 09:09 LRN (Rec: 03/19/25 09:50 LRN Laptop) Hip Goniometric Range of Motion Hip Right Passive Testing Position Supine Internal Rotation 10 External Rotation 70 Left Passive Testing Position Supine Internal Rotation 0 External Rotation 90 PT-OP-M Strength Start: 02/24/25 12:39 Freq: Status: Active Protocol: Document 02/26/25 10:04 LRN (Rec: 02/26/25 10:51 LRN Laptop) Hip Strength Hip Manual Muscle Testing Right Comments Strength is 5/5. Left External Rotation 3+ Fair+ Comments Strength is 5/5 except as indicated above. PT-OP-T Assessment and Plan Start: 02/24/25 12:39 Freq: Status: Active Protocol: Document 06/06/25 20:26 LRN (Rec: 06/06/25 20:29 LRN Laptop) Physical Therapy Assessment Goals Three Impairment L>R Lower abdominal/L lateral trunk, and scar pain (10). Short Term Goal (STG Pt will be educated in self care use of wand for PF ) stretching as needed. Makeup Instructor Goal (LTG) Reduce pain - to improve desire to be interact with spouse for intercourse 1x/week (currently 2-3x/month). LTG Duration 07/18/25 Two Impairment Decreased trunk mobility reducing gonzalez for physical activity Short Term Goal (STG Improve lower abdominal (trunk)/LE mobility making ex ) easier to be more compliant with increase in exercise/ wk. 03/19/25: HEP: Piriformis, Lateral Hip and (only until equal mobility) Fig 4 stretch R side. STG Duration 05/09/25 progressed 03/19/25 Detention Goal (LTG) Improve aerobic exercise endurance and core strength to become more physically active with pt able to walk 4x/ wk (previously walked 2x/month). LTG Duration 07/18/25 One Impairment Pt lacks appropriate self care HEP Short Term Goal (STG Pt will be independent with self abdominal STM to ) improve mobility. STG Duration 05/09/25 Detention Goal (LTG) Pt will be Independent w/HEP of trunk/hip ROM and strength. 03/19/25: HEP: Piriformis, Lateral Hip and (only until equal mobility) Fig 4 stretch R side. LTG Duration 07/18/25 progressed 03/19/25 Assessment Summary Assessment Per phone conversation with the patient on 05/21/25, the pt is wanting to postpone therapy until closer to her endometriosis surgery date, and thinks it will be in July. She doesn't have the flexibility in her home schedule to return to therapy; therefore she requests discharge from PT. The pt was seen for initial evaluation and one treatment visit. Goals were not met . Physical Therapy Plan Discharge Physical Therapy Discharge Reasons Patient Request Discharge Comments Thank you for your referral.
== END 2025-06-10 10:55 | disposition home or self-care (01) ==
LOC: PHYS 09:00
PROVIDERS: Family Provider Naturopath; PCP Naturopath; Referring Provider Obstetrics & Gynecology; Visit Provider Obstetrics & Gynecology
DX: R10.2 Pelvic and perineal pain (principal); M62.81 Muscle weakness (generalized)
CPT/HCPCS: 97110; 97140; 97162; 97535